=== PATIENT | female | born 1970 | race Caucasian/White ===

== ENCOUNTER 2016-05-11 10:16 | Emergency (ER) | payer SELFPAY ==
[~2016-05-11] VITALS: Ht 167.6 cm; Wt 90.7 kg
[~2016-05-11 10:16] MED LIST: DAPS25TA2 PO; EYE DROPS; LORA1TAB82 PO; TACR5CAP PO; advil prn; tylenol prn
[2016-05-11] MEDS ORDERED: KETOROLAC TROMETHAMINE 15 MG/ML VIAL ONE (12:15)
[2016-05-11 12:16] LABS: KETONES,URINE Negative (NEGATIVE); LEUKOCYTE ESTERASE ,URINE Negative (NEGATIVE)
[2016-05-11] MEDS ORDERED: ONDANSETRON HCL/PF 4 MG/2 ML VIAL ONE (12:16)
[2016-05-11 12:21] LABS: ADD UA MICROSCOPIC YES
[2016-05-11 12:25] LABS: ADD URINE CULTURE NO; RBC,URINE 0-2 /HPF (0-2); WBC,URINE 0-2 /HPF (0-3)
[2016-05-11] MEDS ORDERED: ONDANSETRON HCL/PF 4 MG/2 ML VIAL IVP ONE (12:30)
[2016-05-11] MEDS ORDERED: KETOROLAC TROMETHAMINE INJ 30 MG/ML VIAL IV ONE (12:30)
[2016-05-11 12:53] LABS: BASOPHILS # (AUTO) 0.1 /CMM (0.0-0.2); BASOPHILS % (AUTO) 1.5 % (0.0-2.0); DIFF TOTAL % 100 %; EOSINOPHILS # (AUTO) 0.3 /CMM (0.0-0.7); EOSINOPHILS % (AUTO) 3.3 % (0.0-6.0); HEMATOCRIT 44 % (33-45); HEMOGLOBIN 14.3 g/dL (11.5-14.8); LYMPHOCYTES # (AUTO) 3.2 /CMM (0.8-4.8); MEAN CORPUSCULAR HEMOGLOBIN 30 PG (26.0-33.0); MEAN CORPUSCULAR HGB CONC 33 g/dl (31.0-36.0); MEAN CORPUSCULAR VOLUME 90 fL (82-100); MONOCYTES # (AUTO) 0.4 /CMM (0.1-1.30); MONOCYTES % (AUTO) 4.8 % (2.0-12.0); NEUTROPHILS # (AUTO) 5.2 /CMM (1.8-8.9); NEUTROPHILS % (AUTO) 55.4 % (43.0-81.0); PLATELET COUNT (AUTO) 265 /CMM (150-450); RED BLOOD CELL COUNT(AUTO) 4.81 MIL/uL (4.0-5.2); WHITE BLOOD COUNT (AUTO) 9.2 K/uL (4.3-11.0)
[2016-05-11 13:02] LABS: CALCIUM, SERUM 8.5 mg/dL (8.5-10.1); CREATININE 0.6 mg/dL (0.6-1.3)
[2016-05-11 13:08] LABS: ALBUMIN 3.4 g/dL (3.4-5.0); BILIRUBIN,TOTAL 0.5 mg/dL (0.2-1.0); TOTAL PROTEIN, SERUM 7.2 g/dL (6.4-8.2)
[2016-05-11 13:19] LABS: INDIRECT BILIRUBIN 0.5 mg/dL (0.0-1.1)
[2016-05-11 14:00] LABS: CALCIUM, SERUM 8.7 mg/dL (8.5-10.1); CREATININE 0.7 mg/dL (0.6-1.3); POTASSIUM 4.1 mmol/L (3.5-5.1)
[2016-05-11 15:18] VITALS: BP 129/87
== END 2016-05-11 15:19 | disposition home or self-care (01) ==
LOC: ER 10:21
DX: R10.13 Epigastric pain (principal); F41.9 Anxiety disorder, unspecified
CPT/HCPCS: 36415; 76705; 80048 ×2; 80076; 81001; 83690; 85025; 93005; 96374; 96375; 99285; A4606; J1885; J2405; Z7610; 81000-TC

== ENCOUNTER 2016-07-05 11:53 | Emergency (ER) | payer BC, MEDICAID ==
[~2016-07-05] VITALS: Ht 167.6 cm; Wt 99.8 kg
[2016-07-05 14:24] LABS: BASOPHILS # (AUTO) 0.1 /CMM (0.0-0.2); BASOPHILS % (AUTO) 1.1 % (0.0-2.0); DIFF TOTAL % 100 %; EOSINOPHILS # (AUTO) 0.2 /CMM (0.0-0.7); HEMATOCRIT 46 % (33-45); HEMOGLOBIN 14.9 g/dL (11.5-14.8); LYMPHOCYTES # (AUTO) 2.9 /CMM (0.8-4.8); LYMPHOCYTES % (AUTO) 27.9 % (20.0-44.0); MEAN CORPUSCULAR HEMOGLOBIN 30 PG (26.0-33.0); MEAN CORPUSCULAR HGB CONC 33 g/dl (31.0-36.0); MEAN CORPUSCULAR VOLUME 92 fL (82-100); MONOCYTES # (AUTO) 0.5 /CMM (0.1-1.30); MONOCYTES % (AUTO) 5.1 % (2.0-12.0); NEUTROPHILS # (AUTO) 6.7 /CMM (1.8-8.9); NEUTROPHILS % (AUTO) 63.9 % (43.0-81.0); PLATELET COUNT (AUTO) 278 /CMM (150-450); RED BLOOD CELL COUNT(AUTO) 4.97 MIL/uL (4.0-5.2); WHITE BLOOD COUNT (AUTO) 10.4 K/uL (4.3-11.0)
[2016-07-05 14:28] LABS: CALCIUM, SERUM 9.2 mg/dL (8.5-10.1); CREATININE 0.7 mg/dL (0.6-1.3); POTASSIUM 4.2 mmol/L (3.5-5.1)
[2016-07-05] MEDS ORDERED: IOHEXOL-350 100 ML VIAL IV ONE (16:22)
[2016-07-05] MEDS ORDERED: IV NS 0.9% 250 ML IV ONE (16:22)
[2016-07-05 17:55] VITALS: BP 129/88
== END 2016-07-05 18:05 | disposition home or self-care (01) ==
LOC: ER 11:56
DX: J18.9 Pneumonia, unspecified organism (principal); F41.9 Anxiety disorder, unspecified
CPT/HCPCS: 36415; 71010; 71275; 80048; 85025; 85378; 93970; 99285; A4606; J7050; Q9967; Z7610

== ENCOUNTER 2017-07-04 11:23 | Emergency (ER) | payer BC, MEDICAID ==
[~2017-07-04] VITALS: Ht 165.1 cm; Wt 99.8 kg
[~2017-07-04 11:23] MED LIST changes: +LORA-259 PO; -LORA1TAB82 PO
[2017-07-04 11:31] VITALS: BP 139/89
== END 2017-07-04 13:14 | disposition home or self-care (01) ==
LOC: ER 11:24
DX: M47.22 Other spondylosis with radiculopathy, cervical region (principal); M53.82 Other specified dorsopathies, cervical region; J45.909 Unspecified asthma, uncomplicated
CPT/HCPCS: 72125; 99284; A4606; Z7610

== ENCOUNTER 2017-10-21 15:53 | Emergency (ER) | payer MEDICAID ==
[~2017-10-21] VITALS: Ht 165.1 cm; Wt 90.7 kg
--- NOTE | 2017-10-21 16:00 | NUR ---
PT AMBULATED TO THE BATHROOM WITH A SLOW STEADY GAIT. URINE SAMPLE OBTAINED.
--- NOTE | 2017-10-21 16:00 | NUR ---
PT BIB RA WITH A C/O FLU LIKE SYMPTOMS. PT IS C/O HEADACHE, GENERALIZED BODY ACHE, N/V AND FEVER DIRECTOR OF OPERATIONS HOME HEALTH. PT WAS PLACED ON THE MONITOR AND CONTINUOUS PULSE OX. PT IS TACHY WITH ORAL TEMP OF 101.0F. PT'S FAMILY MEMBERS ARE AT THE BEDSIDE. RESP EVEN AND UNLABORED. BREATH SOUNDS BILATERALLY.
[2017-10-21 16:19] LABS: BASOPHILS # (AUTO) 0.1 /CMM (0.0-0.2); BASOPHILS % (AUTO) 1.1 % (0.0-2.0); EOSINOPHILS % (AUTO) 0.2 % (0.0-6.0); HEMATOCRIT 47 % (33-45); HEMOGLOBIN 15.6 g/dL (11.5-14.8); LYMPHOCYTES % (AUTO) 7.7 % (20.0-44.0); MEAN CORPUSCULAR HEMOGLOBIN 30 PG (26.0-33.0); MEAN CORPUSCULAR HGB CONC 34 g/dl (31.0-36.0); MEAN CORPUSCULAR VOLUME 90 fL (82-100); MONOCYTES # (AUTO) 0.3 /CMM (0.1-1.30); MONOCYTES % (AUTO) 2.7 % (2.0-12.0); NEUTROPHILS # (AUTO) 11.4 /CMM (1.8-8.9); NEUTROPHILS % (AUTO) 88.3 % (43.0-81.0); PLATELET COUNT (AUTO) 273 /CMM (150-450); RDW COEFFICIENT OF VARIATION 13.1 (11.5-15.0); RED BLOOD CELL COUNT(AUTO) 5.18 MIL/uL (4.0-5.2); WHITE BLOOD COUNT (AUTO) 12.8 K/uL (4.3-11.0)
[2017-10-21] MEDS ORDERED: ONDANSETRON HCL/PF 4 MG/2 ML VIAL ONE (16:19)
[2017-10-21] MEDS ORDERED: ACETAMINOPHEN ES 500 MG TABLET ONE (16:19)
[2017-10-21 16:24] LABS: APPEARANCE,URINE Slightly Cloudy (CLEAR); BILIRUBIN,URINE Negative (NEGATIVE); BLOOD, URINE Moderate Ery/uL (NEGATIVE); COLOR,URINE Yellow (YELLOW); KETONES,URINE Trace (NEGATIVE); LEUKOCYTE ESTERASE ,URINE Trace (NEGATIVE); NITRITE, URINE Negative (NEGATIVE); PH,URINE 5.5 (5.0-8.0); PROTEIN,URINE Negative (NEGATIVE); UGLUCOSE Negative (NEGATIVE); UROBILINOGEN,URINE 0.2 EU/dL (0.2)
[2017-10-21 16:29] LABS: CALCIUM, SERUM 9.4 mg/dL (8.5-10.1); CARBON DIOXIDE 24 mmol/L (21-32); CHLORIDE 101 mmol/L (98-107); CREATININE 0.9 mg/dL (0.6-1.3); GLUCOSE 91 mg/dL (74-106); SODIUM SERUM 135 mmol/L (136-145); UREA NITROGEN, BLOOD 10 mg/dL (7-18)
[2017-10-21] MEDS ORDERED: ONDANSETRON HCL/PF 4 MG/2 ML VIAL IVP ONE (16:30)
[2017-10-21] MEDS ORDERED: IV NS 0.9% 1,000 ML BAG IV ONE ×2 (16:30→17:00)
[2017-10-21] MEDS ORDERED: ACETAMINOPHEN ES 500 MG TABLET PO ONE (16:30)
[2017-10-21 16:35] LABS: ALANINE AMINOTRANSFERASE 28 U/L (12-78); ALKALINE PHOSPHATASE 65 U/L (46-116); ASPARTATE AMINOTRANSFERASE 17 U/L (15-37); BILIRUBIN,DIRECT 0.1 mg/dL (0.0-0.2); BILIRUBIN,TOTAL 0.7 mg/dL (0.2-1.0); LIPASE 70 U/L (73-393)
[2017-10-21 16:37] LABS: TROPONIN I < 0.017 ng/mL (0.00-0.056)
[2017-10-21 16:57] LABS: BACTERIA,URINE Few /HPF (None Seen); SQUAMOUS EPITHELIAL CELL,UR Few /HPF (None Seen)
[2017-10-21] MEDS ORDERED: KETOROLAC TROMETHAMINE INJ 30 MG/ML VIAL IV ONE (17:00)
[2017-10-21] MEDS ORDERED: METOCLOPRAMIDE HCL 10 MG/2 ML VIAL IV ONE (17:00)
[2017-10-21] MEDS ORDERED: LORAZEPAM INJ 2 MG/ML VIAL IV ONE (17:00)
[2017-10-21] MEDS ORDERED: KETOROLAC TROMETHAMINE INJ 30 MG/ML VIAL ONE (17:18)
[2017-10-21] MEDS ORDERED: METOCLOPRAMIDE HCL 10 MG/2 ML VIAL ONE (17:18)
[2017-10-21] MEDS ORDERED: LORAZEPAM INJ 2 MG/ML VIAL ONE (17:19)
[2017-10-21] MEDS ORDERED: CEFTRIAXONE 1 G in IV D5W 50 ML IV ONE (17:30)
--- NOTE | 2017-10-21 17:34 | NUR ---
PT IS C/O HEADACHE AND GENERALIZED BODY ACHES. PT REC'D MEDICATION ORDERED.
--- NOTE | 2017-10-21 17:40 | NUR ---
PT APPEARS TO BE SLEEPING SOUNDLY. VSS.
--- NOTE | 2017-10-21 17:53 | NUR ---
Note bhakti in EDM - 10/21/17 at 1818 by SCOUT TRIED TO WEAN PT OFF O2. PT DESATURATED TO 89% ON RA. PT PLACED BACK ON 2L O2 VIA NC. DR. SCHWARZ NOTIFIED.
--- NOTE | 2017-10-21 17:59 | NUR ---
PT IS SLEEPING SOUNDLY. NS STILL INFUSING INTO LT HAND VIA 20G.
--- NOTE | 2017-10-21 18:21 | NUR ---
PT'S IS STILL TACHY AT 120.
--- NOTE | 2017-10-21 18:32 | NUR ---
PT FAMILY IS AT THE BEDSIDE
[2017-10-21 19:11] VITALS: BP 130/98
== END 2017-10-21 19:12 | disposition home or self-care (01) ==
LOC: ER 15:54
DX: N30.00 Acute cystitis without hematuria (principal); R53.1 Weakness; M79.1 Myalgia; F41.9 Anxiety disorder, unspecified; J45.909 Unspecified asthma, uncomplicated
CPT/HCPCS: 36415; 71045; 80048; 80076; 81001; 83690; 84484; 85025; 93005; 96361; 96365; 96375; 99285; A4606; J0696; J1885; J2060; J2405; J2765; J7030 ×2; J7060; Z7610; 81000-TC

== ENCOUNTER 2018-01-25 11:17 | Emergency (ER) | payer MEDICAID ==
[~2018-01-25] VITALS: Ht 167.6 cm; Wt 108.9 kg
--- NOTE | 2018-01-25 11:39 | NUR ---
PATIENT TO ED DT VAGINAL BLEEDING X 17-18 DAYS. PER PATIENT SHE USED 2 PADS WITHIN THE DAY. PATIENT IS AWAKE AND ALERT. NOT IN DISTRSS. REPORTED OCCASIONAL DIZZINESS. PATIENT NOT IN DISTRESS. SKIN IS WARM TO TOUCH AND NON DIAPHORETIC. PATIENT IS AFEBRILE.VSS
--- NOTE | 2018-01-25 11:40 | NUR ---
OMARI AT BEDSIDE FOR EVAL
[2018-01-25 12:15] LABS: BASOPHILS # (AUTO) 0.1 /CMM (0.0-0.2); EOSINOPHILS % (AUTO) 1.5 % (0.0-6.0); HEMATOCRIT 46 % (33-45); HEMOGLOBIN 15.1 g/dL (11.5-14.8); LYMPHOCYTES # (AUTO) 2.3 /CMM (0.8-4.8); LYMPHOCYTES % (AUTO) 32.7 % (20.0-44.0); MEAN CORPUSCULAR HGB CONC 33 g/dl (31.0-36.0); MEAN CORPUSCULAR VOLUME 90 fL (82-100); MONOCYTES # (AUTO) 0.3 /CMM (0.1-1.30); NEUTROPHILS # (AUTO) 4.2 /CMM (1.8-8.9); NEUTROPHILS % (AUTO) 59.8 % (43.0-81.0); PLATELET COUNT (AUTO) 283 /CMM (150-450); RDW COEFFICIENT OF VARIATION 13.1 (11.5-15.0); RED BLOOD CELL COUNT(AUTO) 5.09 MIL/uL (4.0-5.2)
[2018-01-25 12:17] LABS: APPEARANCE,URINE Clear (CLEAR); BILIRUBIN,URINE SMALL (NEGATIVE); BLOOD, URINE Large Ery/uL (NEGATIVE); COLOR,URINE Dark (YELLOW); KETONES,URINE 15 (NEGATIVE); LEUKOCYTE ESTERASE ,URINE Negative (NEGATIVE); NITRITE, URINE Negative (NEGATIVE); PH,URINE 5.5 (5.0-8.0); PROTEIN,URINE 100 mg/dl (NEGATIVE); UGLUCOSE Negative (NEGATIVE); UROBILINOGEN,URINE 0.2 EU/dL (0.2)
[2018-01-25 12:22] LABS: CALCIUM, SERUM 8.8 mg/dL (8.5-10.1); CREATININE 0.7 mg/dL (0.6-1.3); POTASSIUM 3.9 mmol/L (3.5-5.1)
[2018-01-25 12:30] LABS: INR 0.96 (0.87-1.13)
[2018-01-25 12:53] LABS: BACTERIA,URINE 1+ /HPF (None Seen); RBC,URINE TOO NUMEROUS TO COUN /HPF (0-2); SQUAMOUS EPITHELIAL CELL,UR Few /HPF (None Seen); WBC,URINE 0-2 /HPF (0-3)
[2018-01-25 13:15] VITALS: BP 130/80
--- NOTE | 2018-01-25 13:15 | NUR ---
Patient discharged to home in stable condition. Written and verbal after care instructions given. Patient verbalizes understanding of instruction.
== END 2018-01-25 13:16 | disposition home or self-care (01) ==
LOC: ER 11:21
DX: N92.1 Excessive and frequent menstruation with irregular cycle (principal); R42 Dizziness and giddiness; J45.909 Unspecified asthma, uncomplicated; E78.00 Pure hypercholesterolemia, unspecified; F17.200 Nicotine dependence, unspecified, uncomplicated; F41.9 Anxiety disorder, unspecified; Z98.890 Other specified postprocedural states
CPT/HCPCS: 36415; 80048; 81001; 84703; 85025; 85610; 99284; 99406; A4606; Z7610; 81000-TC

== ENCOUNTER 2018-11-09 23:38 | Emergency (ER) | payer MEDICAID ==
[~2018-11-09] VITALS: Ht 165.1 cm; Wt 104.3 kg
--- NOTE | 2018-11-09 23:55 | NUR ---
BIBSELF WITH FAMILY. TO ER BED 11. AAOX4. BREATHING EVEN AND UNLABORED. AMBULATORY. C/O PUBIC PAIN AND LLQ PAIN SINCE 1.5 HOURS AGO. PT REPORTS PAIN CRAMPING SHARP INTERMITENT PAIN 02/01. PT NOTED SQUIRMING AROUND AND CANT STAY IN 1 POSITION. PT REPORTS TAKING TYLENOL 650MG SILK SCREEN CUTTER. PT ALSO REPORTS GIVING HERSELF AN ENEMA YESTERDAY. MD AT BEDSIDE. ORDERS RECEIVED. NOTED AND CARRIED OUT
[2018-11-10] MEDS ORDERED: IV NS 0.9% 1,000 ML BAG IV ONE
[2018-11-10] MEDS ORDERED: MORPHINE SULFATE INJ 2 MG/ML DISP.SYRIN IV ONE
[2018-11-10] MEDS ORDERED: ONDANSETRON HCL/PF 4 MG/2 ML VIAL IVP ONE
[2018-11-10] MEDS ORDERED: MORPHINE SULFATE INJ 4 MG/ML DISP.SYRIN ONE (00:03)
[2018-11-10] MEDS ORDERED: ONDANSETRON HCL/PF 4 MG/2 ML VIAL ONE (00:03)
--- NOTE | 2018-11-10 00:07 | NUR ---
IV LINE OBATINED ON L HAND 20G. BLOOD DRAWN AND GIVEN TO TELEPHONE PLANT POWER OPERATOR AT BEDSIDE.
[2018-11-10 00:08] LABS: BASOPHILS # (AUTO) 0.1 /CMM (0.0-0.2); BASOPHILS % (AUTO) 0.7 % (0.0-2.0); EOSINOPHILS % (AUTO) 4.3 % (0.0-6.0); HEMATOCRIT 42 % (33-45); HEMOGLOBIN 14.3 g/dL (11.5-14.8); LYMPHOCYTES # (AUTO) 3.8 /CMM (0.8-4.8); LYMPHOCYTES % (AUTO) 37.3 % (20.0-44.0); MEAN CORPUSCULAR HGB CONC 34 g/dl (31.0-36.0); MEAN CORPUSCULAR VOLUME 91 fL (82-100); MONOCYTES # (AUTO) 0.6 /CMM (0.1-1.30); MONOCYTES % (AUTO) 5.9 % (2.0-12.0); NEUTROPHILS # (AUTO) 5.3 /CMM (1.8-8.9); NEUTROPHILS % (AUTO) 51.8 % (43.0-81.0); PLATELET COUNT (AUTO) 293 /CMM (150-450); RED BLOOD CELL COUNT(AUTO) 4.57 MIL/uL (4.0-5.2); WHITE BLOOD COUNT (AUTO) 10.2 K/uL (4.3-11.0)
[2018-11-10 00:09] LABS: APPEARANCE,URINE Clear (CLEAR); BILIRUBIN,URINE Negative (NEGATIVE); BLOOD, URINE Small Ery/uL (NEGATIVE); COLOR,URINE Yellow (YELLOW); KETONES,URINE Negative (NEGATIVE); LEUKOCYTE ESTERASE ,URINE Negative (NEGATIVE); NITRITE, URINE Negative (NEGATIVE); PH,URINE 7.5 (5.0-8.0); PROTEIN,URINE Negative (NEGATIVE); UGLUCOSE Negative (NEGATIVE); UROBILINOGEN,URINE 0.2 EU/dL (0.2)
--- NOTE | 2018-11-10 00:17 | NUR ---
PT TO CT ON [facility]
[2018-11-10 00:24] LABS: CALCIUM, SERUM 8.9 mg/dL (8.5-10.1); POTASSIUM 4.7 mmol/L (3.5-5.1)
[2018-11-10 00:31] LABS: ALBUMIN 3.5 g/dL (3.4-5.0); BILIRUBIN,TOTAL 0.2 mg/dL (0.2-1.0); TOTAL PROTEIN, SERUM 7.1 g/dL (6.4-8.2)
--- NOTE | 2018-11-10 00:34 | NUR ---
US AT BEDSIDE
[2018-11-10 00:46] LABS: BACTERIA,URINE Few /HPF (None Seen); SQUAMOUS EPITHELIAL CELL,UR Few /HPF (None Seen); WBC,URINE 0-2 /HPF (0-3)
[2018-11-10 01:24] VITALS: BP 101/60
== END 2018-11-10 01:51 | disposition home or self-care (01) ==
LOC: ER 23:42
DX: D25.9 Leiomyoma of uterus, unspecified (principal); J45.909 Unspecified asthma, uncomplicated; Z98.890 Other specified postprocedural states; Z79.899 Other long term (current) drug therapy
CPT/HCPCS: 36415; 74176; 76856; 80048; 80076; 81001; 83690; 84703; 85025; 85730; 96374; 96375; 99284; J2270; J2405; J7030; 81000-TC

== ENCOUNTER 2019-02-05 14:19 | Emergency (ER) | payer MEDICAID ==
[~2019-02-05] VITALS: Ht 167.6 cm; Wt 108.9 kg
--- NOTE | 2019-02-05 14:26 | NUR ---
PT BIBRA FROM HOME C/O FEVER FOR 3 DAYS AND HEADACHE. PT IS AAOX4, NOT IN RESPIRAOTRY DISTRESS, HOOKED TO MONITOR, KEPT RESTED AND COMFORTABLE, WILL CONTINUE TO MONITOR.
--- NOTE | 2019-02-05 14:34 | NUR ---
AT BEDSIDE FOR EVAL.
[2019-02-05] MEDS ORDERED: diphenhydrAMINE HCL 50 MG/ML VIAL ONE (14:43)
[2019-02-05] MEDS ORDERED: ONDANSETRON HCL/PF 4 MG/2 ML VIAL ONE (14:43)
[2019-02-05] MEDS ORDERED: IV NS 0.9% 1,000 ML BAG IV ONE (15:00)
[2019-02-05] MEDS ORDERED: diphenhydrAMINE HCL 50 MG/ML VIAL IV ONE (15:00)
[2019-02-05] MEDS ORDERED: ONDANSETRON HCL/PF 4 MG/2 ML VIAL IVP ONE (15:00)
--- NOTE | 2019-02-05 15:00 | NUR ---
IV LINE ESTABLISHED, BLOOD DRAWN AND SENT TO LAB.
--- NOTE | 2019-02-05 15:05 | NUR ---
URINE SPECIMEN COLLECTED AND SENT TO LAB.
[2019-02-05 15:06] LABS: BASOPHILS % (AUTO) 0.4 % (0.0-2.0); EOSINOPHILS % (AUTO) 3.2 % (0.0-6.0); HEMATOCRIT 45 % (33-45); HEMOGLOBIN 15.1 g/dL (11.5-14.8); LYMPHOCYTES # (AUTO) 2.7 /CMM (0.8-4.8); LYMPHOCYTES % (AUTO) 27.9 % (20.0-44.0); MEAN CORPUSCULAR HGB CONC 34 g/dl (31.0-36.0); MEAN CORPUSCULAR VOLUME 93 fL (82-100); MONOCYTES # (AUTO) 0.5 /CMM (0.1-1.30); MONOCYTES % (AUTO) 4.9 % (2.0-12.0); NEUTROPHILS # (AUTO) 6.3 /CMM (1.8-8.9); NEUTROPHILS % (AUTO) 63.6 % (43.0-81.0); PLATELET COUNT (AUTO) 300 /CMM (150-450); RED BLOOD CELL COUNT(AUTO) 4.82 MIL/uL (4.0-5.2); WHITE BLOOD COUNT (AUTO) 9.8 K/uL (4.3-11.0)
[2019-02-05 15:13] LABS: BILIRUBIN,URINE Negative (NEGATIVE); BLOOD, URINE Moderate Ery/uL (NEGATIVE); COLOR,URINE Yellow (YELLOW); KETONES,URINE Negative (NEGATIVE); LEUKOCYTE ESTERASE ,URINE Negative (NEGATIVE); NITRITE, URINE Negative (NEGATIVE); PROTEIN,URINE Negative (NEGATIVE); UGLUCOSE Negative (NEGATIVE); UROBILINOGEN,URINE 0.2 EU/dL (0.2)
[2019-02-05 15:15] LABS: APPEARANCE,URINE Hazy (CLEAR)
[2019-02-05 15:15] LABS: CALCIUM, SERUM 8.9 mg/dL (8.5-10.1); CARBON DIOXIDE 28 mmol/L (21-32); CHLORIDE 103 mmol/L (98-107); CREATININE 0.8 mg/dL (0.6-1.3); GLUCOSE 105 mg/dL (74-106); POTASSIUM 3.9 mmol/L (3.5-5.1); SODIUM SERUM 137 mmol/L (136-145); UREA NITROGEN, BLOOD 14 mg/dL (7-18)
[2019-02-05 15:18] LABS: BACTERIA,URINE Rare /HPF (None Seen); SQUAMOUS EPITHELIAL CELL,UR Few /HPF (None Seen); WBC,URINE 0-3 /HPF (0-3)
--- NOTE | 2019-02-05 15:20 | NUR ---
PT IS WHEELED TO CT SCAN VIA [facility]
[2019-02-05 15:21] LABS: ALANINE AMINOTRANSFERASE 18 U/L (12-78); ALBUMIN 3.4 g/dL (3.4-5.0); ALKALINE PHOSPHATASE 69 U/L (46-116); ASPARTATE AMINOTRANSFERASE 14 U/L (15-37); BILIRUBIN,TOTAL 0.2 mg/dL (0.2-1.0); TOTAL PROTEIN, SERUM 7.1 g/dL (6.4-8.2)
--- NOTE | 2019-02-05 17:31 | NUR ---
IV removed. Catheter intact and site benign. Pressure and 4x4 applied to site. No bleeding noted. Patient discharged to home in stable condition. Written and verbal after care instructions given. Patient verbalizes understanding of instruction.
[2019-02-05 17:32] VITALS: BP 129/71
== END 2019-02-05 17:32 | disposition home or self-care (01) ==
LOC: ER 14:21
DX: R42 Dizziness and giddiness (principal); B34.9 Viral infection, unspecified; J45.909 Unspecified asthma, uncomplicated; Z98.890 Other specified postprocedural states; Z79.899 Other long term (current) drug therapy
CPT/HCPCS: 36415; 70450; 71045; 80048; 80076; 81001; 83605; 84484; 85025; 85730; 87040 ×2; 87804 ×2; 93005; 96361; 96374; 96375; 99284; J1200; J2405; J7030 ×2; 81000-TC

== ENCOUNTER 2019-10-12 10:05 | Emergency (ER) | payer MEDICAID ==
[~2019-10-12] VITALS: Ht 170.2 cm; Wt 88.5 kg
[~2019-10-12 10:05] MED LIST changes: -TACR5CAP PO; +TACR5CAP2 PO
[2019-10-12] MEDS ORDERED: HYDROCODONE/APAP 5/325MG TABLET PO ONE (10:30)
[2019-10-12] MEDS ORDERED: HYDROCODONE/APAP 5/325MG TABLET ONE (10:43)
[2019-10-12 10:44] LABS: BASOPHILS # (AUTO) 0.1 /CMM (0.0-0.2); BASOPHILS % (AUTO) 0.8 % (0.0-2.0); EOSINOPHILS % (AUTO) 1.3 % (0.0-6.0); HEMATOCRIT 50 % (33-45); HEMOGLOBIN 16.4 g/dL (11.5-14.8); LYMPHOCYTES # (AUTO) 2.1 /CMM (0.8-4.8); MEAN CORPUSCULAR HGB CONC 33 g/dl (31.0-36.0); MEAN CORPUSCULAR VOLUME 94 fL (82-100); MONOCYTES # (AUTO) 0.5 /CMM (0.1-1.30); MONOCYTES % (AUTO) 5.3 % (2.0-12.0); NEUTROPHILS # (AUTO) 6.4 /CMM (1.8-8.9); NEUTROPHILS % (AUTO) 69.6 % (43.0-81.0); PLATELET COUNT (AUTO) 290 /CMM (150-450); RED BLOOD CELL COUNT(AUTO) 5.32 MIL/uL (4.0-5.2); WHITE BLOOD COUNT (AUTO) 9.1 K/uL (4.3-11.0)
[2019-10-12 10:46] LABS: CALCIUM, SERUM 9.5 mg/dL (8.5-10.1); POTASSIUM 4.1 mmol/L (3.5-5.1)
--- NOTE | 2019-10-12 11:00 | NUR ---
Pt states "Pain better", No obvious distress-ambulatory BRP. US at Bedside
[2019-10-12 11:25] LABS: BILIRUBIN,URINE Negative (NEGATIVE); BLOOD, URINE Moderate Ery/uL (NEGATIVE); COLOR,URINE Yellow (YELLOW); KETONES,URINE Negative (NEGATIVE); LEUKOCYTE ESTERASE ,URINE Negative (NEGATIVE); NITRITE, URINE Negative (NEGATIVE); PROTEIN,URINE Negative (NEGATIVE); UGLUCOSE Negative (NEGATIVE); UROBILINOGEN,URINE 0.2 EU/dL (0.2)
[2019-10-12 11:26] LABS: APPEARANCE,URINE SLIGHTLY HAZY (CLEAR)
[2019-10-12 11:30] LABS: BACTERIA,URINE Few /HPF (None Seen); SQUAMOUS EPITHELIAL CELL,UR Many /HPF (None Seen)
[2019-10-12 11:35] VITALS: BP 127/80
--- NOTE | 2019-10-12 11:38 | NUR ---
Patient discharged to home in stable condition. Written and verbal after care instructions given. Patient verbalizes understanding of instruction.
== END 2019-10-12 11:39 | disposition home or self-care (01) ==
LOC: ER 10:13
DX: D25.9 Leiomyoma of uterus, unspecified (principal); N92.1 Excessive and frequent menstruation with irregular cycle; J45.909 Unspecified asthma, uncomplicated; Z98.890 Other specified postprocedural states; Z79.899 Other long term (current) drug therapy
CPT/HCPCS: 36415; 76856-TC; 80048-TC; 81000-TC; 85025-TC

== ENCOUNTER 2019-12-09 11:58 | Emergency (ER) | payer MEDICAID ==
[~2019-12-09] VITALS: Ht 167.6 cm; Wt 100.2 kg
[2019-12-09 12:08] VITALS: BP 136/94
--- NOTE | 2019-12-09 12:10 | NUR ---
"MyBP has been high the last couple days. I take metoprolol ONLY when high took 2 tabs today. Have vertigo-dizzy" Attached to the conveyor monitor.
--- NOTE | 2019-12-09 12:25 | NUR ---
Patient called this expert medical writer to the bedside inquiring "how long MD is coming- its too long" When I informed her "MD is attending to a pt right now will be here in 10-15 min" Pt states "thats too long- I do NOT want to wait."Got up the guerney and walked out
[2019-12-09] MEDS ORDERED: ONDANSETRON HCL/PF 4 MG/2 ML VIAL IVP ONE (12:30)
[2019-12-09] MEDS ORDERED: IV NS 0.9% 500 ML BAG IV ONE (12:30)
== END 2019-12-09 12:32 | disposition left against medical advice (07) ==
LOC: ER 12:04
DX: R42 Dizziness and giddiness (principal); Z53.21 Procedure and treatment not carried out due to patient leaving prior to being seen by health care provider

== ENCOUNTER 2020-09-27 14:41 | Emergency (ER) | payer BC, MEDICAID ==
[~2020-09-27] VITALS: Ht 167.6 cm; Wt 95.3 kg
--- NOTE | 2020-09-27 14:41 | NUR ---
PT BIB C/O ABDOMINAL PAIN AND NAUSEA/VOMITING STARTED YESTERDAY. PT IS AAOX4, NOT IN RESPIRATORY DISTRESSM V/S STABLE, KEPT RESTED AND COMFORTABLE. WILL CONTINUE TO MONITOR.
--- NOTE | 2020-09-27 15:05 | NUR ---
SEEN AND EXAMINED BY .
--- NOTE | 2020-09-27 15:08 | NUR ---
URINE SPECIMEN COLLECTED AND SENT TO LAB.
[2020-09-27] MEDS ORDERED: ONDANSETRON HCL/PF 4 MG/2 ML VIAL ONE (15:12)
[2020-09-27] MEDS ORDERED: MORPHINE SULFATE INJ 4 MG/ML DISP.SYRIN ONE (15:12)
--- NOTE | 2020-09-27 15:15 | NUR ---
HOSPICE LIAISON AT BEDSIDE FOR XRAY.
[2020-09-27 15:18] LABS: BILIRUBIN,URINE Negative (NEGATIVE); COLOR,URINE YELLOW (YELLOW); LEUKOCYTE ESTERASE ,URINE Negative (NEGATIVE); NITRITE, URINE Negative (NEGATIVE); PH,URINE 5.5 (5.0-8.0); PROTEIN,URINE Negative (NEGATIVE); UGLUCOSE Negative (NEGATIVE); UROBILINOGEN,URINE 0.2 EU/dL (0.2)
[2020-09-27 15:21] LABS: BACTERIA,URINE Rare /HPF (None Seen); SQUAMOUS EPITHELIAL CELL,UR Few /HPF (None Seen); WBC,URINE NONE SEEN /HPF (0-3)
--- NOTE | 2020-09-27 15:25 | NUR ---
IV LINE ESTABLISHED BLOOD DRAWN AND SENT TO LAB.
[2020-09-27 15:28] LABS: BASOPHILS % (AUTO) 0.4 % (0.0-2.0); EOSINOPHILS % (AUTO) 2.8 % (0.0-6.0); HEMATOCRIT 44 % (33-45); HEMOGLOBIN 14.6 g/dL (11.5-14.8); LYMPHOCYTES # (AUTO) 2.9 /CMM (0.8-4.8); LYMPHOCYTES % (AUTO) 30.5 % (20.0-44.0); MEAN CORPUSCULAR HGB CONC 33 g/dl (31.0-36.0); MEAN CORPUSCULAR VOLUME 92 fL (82-100); MONOCYTES # (AUTO) 0.6 /CMM (0.1-1.30); MONOCYTES % (AUTO) 5.9 % (2.0-12.0); NEUTROPHILS # (AUTO) 5.7 /CMM (1.8-8.9); NEUTROPHILS % (AUTO) 60.4 % (43.0-81.0); PLATELET COUNT (AUTO) 288 /CMM (150-450); RED BLOOD CELL COUNT(AUTO) 4.76 MIL/uL (4.0-5.2); WHITE BLOOD COUNT (AUTO) 9.5 K/uL (4.3-11.0)
[2020-09-27] MEDS ORDERED: IV NS 0.9% 1,000 ML BAG IV ONE (15:30)
[2020-09-27] MEDS ORDERED: ONDANSETRON HCL/PF 4 MG/2 ML VIAL IVP ONE (15:30)
[2020-09-27] MEDS ORDERED: MORPHINE SULFATE INJ 2 MG/ML DISP.SYRIN IV ONE (15:30)
--- NOTE | 2020-09-27 15:33 | NUR ---
MORPHINE 4 MG GIVEN. WELL TOLERATED BY THE PT. NO ADVERSE REACTION NOTED. V/S STABLE.
[2020-09-27 15:48] LABS: CREATININE 0.7 mg/dL (0.6-1.3); POTASSIUM 4.4 mmol/L (3.5-5.1)
[2020-09-27 15:54] LABS: ALBUMIN 3.5 g/dL (3.4-5.0); BILIRUBIN,DIRECT 0.1 mg/dL (0.0-0.2); BILIRUBIN,TOTAL 0.2 mg/dL (0.2-1.0)
--- NOTE | 2020-09-27 16:43 | NUR ---
DR. HUSAIN SPEAKING WITH DR. CHAVEZ.
[2020-09-27] MEDS ORDERED: HYDR-3972 PO (16:49)
[2020-09-27] MEDS ORDERED: IBUP-1957 PO (16:49)
[2020-09-27 17:08] VITALS: BP 125/73
== END 2020-09-27 17:09 | disposition home or self-care (01) ==
LOC: ER 14:47
DX: K43.9 Ventral hernia without obstruction or gangrene (principal); R11.2 Nausea with vomiting, unspecified; J45.909 Unspecified asthma, uncomplicated; Z98.890 Other specified postprocedural states; Z79.899 Other long term (current) drug therapy
CPT/HCPCS: 36415; 71045; 74176; 80048; 80076; 81001; 83690; 85025; 96361; 96374; 96375; 99285; J2270; J2405; J7030

== ENCOUNTER → 2020-10-06 | Outpatient (CLI) | payer BC ==
[~2020-10-06] MED LIST changes: +HYDR-3972 PO; +IBUP-1957 PO
== END | disposition home or self-care (01) ==
LOC: RAD 09:46
DX: R76.11 Nonspecific reaction to tuberculin skin test without active tuberculosis (principal)
CPT/HCPCS: 71045-TC

== ENCOUNTER 2021-03-25 09:51 | Inpatient (IN) | payer BC ==
[~2021-03-25] VITALS: Ht 165.1 cm; Wt 96.6 kg
--- NOTE | 2021-03-25 10:00 | NUR ---
THE PATIENT BIB [facility] FOR C/O ABDOMINAL PAIN 12/02 X 1 WEEK. ABDOMEN SOFT AND NON-DISTENDED. WILL CONTINUE TO MONITOR THE PATIENT.
[2021-03-25] MEDS ORDERED: ONDANSETRON HCL/PF 4 MG/2 ML VIAL IVP ONE (10:30)
[2021-03-25] MEDS ORDERED: IV NS 0.9% 1,000 ML BAG IV ONE (10:30)
--- NOTE | 2021-03-25 10:38 | NUR ---
IV LINE IS ESTABLISHED, BLOOD SPECIMEN COLLECTED AND SENT TO THE LAB
[2021-03-25 10:40] LABS: BASOPHILS # (AUTO) 0.1 K/uL (0.0-0.2); BASOPHILS % (AUTO) 0.9 % (0.0-2.0); EOSINOPHILS % (AUTO) 1.2 % (0.0-6.0); HEMATOCRIT 42 % (33-45); HEMOGLOBIN 13.8 g/dL (11.5-14.8); LYMPHOCYTES # (AUTO) 2.5 K/uL (0.8-4.8); MEAN CORPUSCULAR HGB CONC 33 g/dl (31.0-36.0); MEAN CORPUSCULAR VOLUME 93 fL (82-100); MONOCYTES # (AUTO) 0.8 K/uL (0.1-1.30); NEUTROPHILS # (AUTO) 10.2 K/uL (1.8-8.9); NEUTROPHILS % (AUTO) 73.9 % (43.0-81.0); PLATELET COUNT (AUTO) 321 K/uL (150-450); RED BLOOD CELL COUNT(AUTO) 4.48 MIL/uL (4.0-5.2); WHITE BLOOD COUNT (AUTO) 13.8 K/uL (4.3-11.0)
--- NOTE | 2021-03-25 10:43 | NUR ---
URINE COLLECTED AND SENT TO THE LAB
[2021-03-25] MEDS ORDERED: ONDANSETRON HCL/PF 4 MG/2 ML VIAL ONE (10:45)
[2021-03-25 10:51] LABS: CALCIUM, SERUM 8.7 mg/dL (8.5-10.1); CARBON DIOXIDE 27 mmol/L (21-32); CHLORIDE 100 mmol/L (98-107); CREATININE 0.8 mg/dL (0.6-1.3); GLUCOSE 94 mg/dL (74-106); POTASSIUM 4.3 mmol/L (3.5-5.1); SODIUM SERUM 136 mmol/L (136-145); UREA NITROGEN, BLOOD 12 mg/dL (7-18)
[2021-03-25 10:56] LABS: ALANINE AMINOTRANSFERASE 15 U/L (12-78); ALBUMIN 3.1 g/dL (3.4-5.0); ALKALINE PHOSPHATASE 78 U/L (46-116); ASPARTATE AMINOTRANSFERASE 20 U/L (15-37); BILIRUBIN,DIRECT 0.1 mg/dL (0.0-0.2); BILIRUBIN,TOTAL 0.5 mg/dL (0.2-1.0); LIPASE 28 U/L (73-393); TOTAL PROTEIN, SERUM 7.4 g/dL (6.4-8.2)
--- NOTE | 2021-03-25 11:28 | NUR ---
PT RETURNED TO ER BED [address]
[2021-03-25] MEDS ORDERED: FENTANYL PF 100MCG/2ML AMPUL ONE ×2 (11:29→12:33)
[2021-03-25] MEDS ORDERED: FENTANYL PF 100MCG/2ML AMPUL IV ONE ×2 (11:30→12:30)
[2021-03-25 12:21] LABS: BILIRUBIN,URINE SMALL (NEGATIVE); COLOR,URINE DARK YELLOW (YELLOW); LEUKOCYTE ESTERASE ,URINE Negative (NEGATIVE); NITRITE, URINE Negative (NEGATIVE); PH,URINE 6.5 (5.0-8.0); PROTEIN,URINE Trace mg/dl (NEGATIVE); UGLUCOSE Negative (NEGATIVE)
[2021-03-25] MEDS ORDERED: PIPERACILLIN /TAZOBACTAM 3.375 G in IV D5W 50 ML IV ONE (12:30)
--- NOTE | 2021-03-25 12:39 | NUR ---
MOVE SHEET SUBMITTED.
[2021-03-25 12:43] LABS: BACTERIA,URINE Few /HPF (None Seen); WBC,URINE 0-3 /HPF (0-3)
[2021-03-25 12:44] LABS: SQUAMOUS EPITHELIAL CELL,UR Moderate /HPF (None Seen); YEAST,URINE Few /HPF (None Seen)
[2021-03-25] MEDS ORDERED: MULT-447 PO (12:44)
[2021-03-25] MEDS ORDERED: HYDR-4209 PO (12:44)
--- NOTE | 2021-03-25 12:50 | NUR ---
COVID SWAB DONE AND SENT TO THE LAB
--- NOTE | 2021-03-25 14:00 | NUR ---
MAURY ELLISON [phone] ASKED FOR US TO CONTACT DR. GR @[phone]
--- NOTE | 2021-03-25 14:02 | NUR ---
DR. GR AT [phone] VARGAS
--- NOTE | 2021-03-25 15:51 | NUR ---
DR HUSAIN AT THE BEDSIDE
[2021-03-25] MEDS ORDERED: HYDROMORPHONE 1 MG/1 ML DISP.SYRIN ONE (16:23)
[2021-03-25] MEDS ORDERED: MORPHINE SULFATE INJ 2 MG/ML DISP.SYRIN IV PRN (16:30)
[2021-03-25] MEDS ORDERED: Z GUARD REMEDY 2 OZ OINT TP PRN (16:30)
[2021-03-25] MEDS ORDERED: ACETAMINOPHEN 325 MG TABLET PO PRN (16:30)
[2021-03-25] MEDS: PANTOPRAZOLE 40 MG VIAL IV SCH (16:30)
[2021-03-25] MEDS: ENOXAPARIN SODIUM 40 MG/0.4 ML DISP.SYRIN SQ SCH (16:30)
[2021-03-25] MEDS: HYDROMORPHONE 1 MG/1 ML DISP.SYRIN IV PRN ×2 (16:59→20:59)
--- NOTE | 2021-03-25 17:11 | NUR ---
PT GOING TO M/S 324.1
--- NOTE | 2021-03-25 17:49 | NUR ---
REPORT GIVEN TO MIRELLA Stevenson RN FOR PRANAY
--- NOTE | 2021-03-25 18:57 | NUR ---
PT TRANSFERRING TO 324 [facility]IA [facility] PROTOCOL. ALL BELONGINGS WITH PT
--- NOTE | 2021-03-25 19:30 | NUR ---
MS RN OPENING NOTE PATIENT WAS ALREADY IN THE ROOM DURING THE PRANAY OF REPORT. ENDORSED TO ME BY LADY THAT PATIENT CAME IN AT 1900. WILL DO ADMISSION PROCESS.
--- NOTE | 2021-03-25 19:45 | NUR ---
ADMISSION NOTE PATIENT A/OX4. ABLE TO MAKE NEEDS KNOWN AND AMBULATORY WITH STEADY GAIT. NO S/S OF APPARENT DISTRESS ON ROOM AIR. PATIENT HAS TOLERABLE PAIN. PAIN MEDICATION NOT DUE YET. PATIENT WISHES TO BE FULL CODE. ADMITS THAT SHE SMKES 3/4 PACK OF CIGARETTES A DAY. PATIENT REPORTS BEING VACCINATED WITH PFIZER 2 DOSES. ID BAND ON PATIENT. BELONGINGS LIST SIGNED. PATIENT HAS R.HAND IV #20G WORKING AND FLUSHING WELL. WILL FOLLOW THROUGH DOCTOR'S ORDERS.
[2021-03-25] MEDS: IV D5/0.45 NACL 1,000 ML IV PRN (19:59)
[2021-03-25 20:00] VITALS: BP 113/56
[2021-03-25] MEDS: ONDANSETRON HCL/PF 4 MG/2 ML VIAL IVP PRN (20:58)
[2021-03-25] MEDS: PIPERACILLIN /TAZOBACTAM 3.375 G in IV D5W 100 ML IV SCH (20:58)
[2021-03-25] MEDS ORDERED: PIPERACILLIN /TAZOBACTAM 3.375 G in IV D5W 50 ML IV SCH (21:00)
[2021-03-26] MEDS: HYDROMORPHONE 1 MG/1 ML DISP.SYRIN IV PRN ×4 (00:59→20:04)
[2021-03-26] MEDS: PIPERACILLIN /TAZOBACTAM 3.375 G in IV D5W 100 ML IV SCH ×3 (04:10→20:05)
[2021-03-26] MEDS: ONDANSETRON HCL/PF 4 MG/2 ML VIAL IVP PRN ×2 (04:25→12:36)
[2021-03-26] MEDS: LORAZEPAM INJ 2 MG/ML VIAL IV PRN (04:25)
--- NOTE | 2021-03-26 04:30 | NUR ---
MS RN NOTE PATIENT C/O NAUSEA. GIVEN ZOFRAN. ALSO GIVEN ATIVAN 0.5 ML, PATIENT SEEMS ANXIOUS AND C/O NOT BEING BE ABLE TO SLEEP.
--- NOTE | 2021-03-26 06:41 | NUR ---
MS RN CLOSING NOTE PATIENT IN BED WITH EYES CLOSED, EASY TO AROUSE. A/OX4. NO S/S OF APPARENT DISTRESS ON ROOM AIR. PAIN MANAGED WITH MEDICATIONS. IV ZOSYN STILL RUNNING @25 ML/HR. ALL NEEDS ATTENDED. ALL SCHEDULED MEDS ADMINISTERED. SAFETY KEPT IN PLACE THE WHOLE SHIFT. WILL ENDORSE TO MORNING SHIFT RN FOR CONTINUITY OF CARE.
[2021-03-26 06:48] LABS: BASOPHILS % (AUTO) 0.3 % (0.0-2.0); EOSINOPHILS % (AUTO) 0.8 % (0.0-6.0); HEMATOCRIT 38 % (33-45); HEMOGLOBIN 12.7 g/dL (11.5-14.8); LYMPHOCYTES # (AUTO) 1.7 K/uL (0.8-4.8); LYMPHOCYTES % (AUTO) 13.3 % (20.0-44.0); MEAN CORPUSCULAR HGB CONC 34 g/dl (31.0-36.0); MEAN CORPUSCULAR VOLUME 92 fL (82-100); MONOCYTES # (AUTO) 0.9 K/uL (0.1-1.30); MONOCYTES % (AUTO) 6.8 % (2.0-12.0); NEUTROPHILS % (AUTO) 78.8 % (43.0-81.0); PLATELET COUNT (AUTO) 293 K/uL (150-450); RED BLOOD CELL COUNT(AUTO) 4.08 MIL/uL (4.0-5.2); WHITE BLOOD COUNT (AUTO) 12.7 K/uL (4.3-11.0)
[2021-03-26 07:11] LABS: CALCIUM, SERUM 8.3 mg/dL (8.5-10.1); CREATININE 0.9 mg/dL (0.6-1.3); MAGNESIUM 1.9 mg/dL (1.8-2.4); PHOSPHORUS 3.1 mg/dL (2.5-4.9); POTASSIUM 3.9 mmol/L (3.5-5.1)
--- NOTE | 2021-03-26 07:42 | NUR ---
MS RN OPENING NOTES RECEIVED PATIENT IN BED, ASLEEP. PATIENT ON ROOM AIR; BREATHING EVEN AND UNLABORED; N SOB NOTED. NO S/S OF PAIN SUCH FACIAL GRIMACING, MOANING OR GUARDING AT THIS TIME. IV ACCESS AT R HAND RUNNING 1/4 NS @ 75 MLS/HR. PATIENT IS NPO AT THIS TIME. SAFETY PRECAUTIONS IN PLACE; BED IN LOW POSITION AND LOCKED, RAILS UP X2, CALL LIGHT WITHIN REACH. WILL CONTINUE TO MONITOR PATIENT.
[2021-03-26 08:32] LABS: THYROID STIMULATING HORMONE 1.281 uIU/mL (0.358-3.74)
[2021-03-26] MEDS: PANTOPRAZOLE 40 MG VIAL IV SCH (09:14)
--- NOTE | 2021-03-26 12:28 | NUR ---
RN NOTES Pt COMPLAINING OF 8/10 PAIN IN LOWER ABDOMEN AND REQUESTING PAIN MEDICATION. VITAL SIGNS WITHIN NORMAL LIMITS: BP; 107/68 AND HR 102 O2 97% IN ROOM AIR
--- NOTE | 2021-03-26 12:40 | NUR ---
RN NOTES PRN DILAUDID GIVEN FOR PAIN 12/02. WILL REASSESS.
[2021-03-26] MEDS: ENOXAPARIN SODIUM 40 MG/0.4 ML DISP.SYRIN SQ SCH (16:06)
--- NOTE | 2021-03-26 18:44 | NUR ---
MS RN CLOSING NOTES RECEIVED PATIENT IN BED, AWAKE, A/O X4. PATIENT ON ROOM AIR; BREATHING EVEN AND UNLABORED; N SOB NOTED. PAIN TREATED WITH PRN MEDICATION PER MD ORDER. IV ACCESS AT R HAND RUNNING D5 1/2 NS @ 75 MLS/HR. PATIENT REMAINS NPO AT THIS TIME. ALL NEEDS ATTENDED DURING THE DAY. SAFETY PRECAUTIONS IN PLACE; BED IN LOW POSITION AND LOCKED, RAILS UP X2, CALL LIGHT WITHIN REACH. WILL ENDORSE TO CANOE BUILDER NURSE FOR PRANAY.
--- NOTE | 2021-03-26 19:18 | NUR ---
MS RN OPENING NOTES PATIENT WAS SEEN AWAKE IN BED RESTING. A/O X4. PATIENT'S STABLE ON ROOM AIR. IV ACCESS IN R HAND, WHICH IS INTACT, PATENT, AND FLUSHING WELL. PATIENT REMAINS NPO AT THIS TIME. PATIENT'S IN NO ACUTE DISTRESS AT THIS TIME. SAFETY MEASURES IN PLACE: BED LOCKED, SIDE RAILS UP X2, AND CALL LIGHT WITHIN REACH OF THE PATIENT. WILL CONTINUE TO MONITOR THE PATIENT.
[2021-03-26 20:00] VITALS: BP 127/78
--- NOTE | 2021-03-26 20:04 | NUR ---
MS RN NOTES PATIENT C/O 10/10 PAIN. PATIENT WAS GIVEN 1MG OF DILAUDID IV. WILL REASSESS THE PAIN AT 2033.
[2021-03-27] MEDS: HYDROMORPHONE 1 MG/1 ML DISP.SYRIN IV PRN ×6 (01:03→21:54)
--- NOTE | 2021-03-27 01:03 | NUR ---
MS RN NOTES PATIENT C/O 9/10 PAIN. PATIENT WAS GIVEN 1MG OF DILAUDID IV. WILL REASSESS THE PAIN AT 0133
[2021-03-27] MEDS: PIPERACILLIN /TAZOBACTAM 3.375 G in IV D5W 100 ML IV SCH ×3 (04:01→20:32)
--- NOTE | 2021-03-27 05:37 | NUR ---
MS RN NOTES PATIENT C/O 10/10 PAIN. PATIENT WAS GIVEN 1MG OF DILAUDID IV. WILL REASSESS THE PAIN AT 0607.
--- NOTE | 2021-03-27 06:59 | NUR ---
MS RN CLOSING NOTES PATIENT WAS SEEN SLEEPING IN BED. A/O X4. PATIENT'S STABLE ON ROOM AIR. IV ACCESS IN LFA #22, WHICH IS RUNNING ZOSYN AT THIS TIME. PATIENT REMAINS NPO AT THIS TIME. PATIENT'S IN NO ACUTE DISTRESS AT THIS TIME. SAFETY MEASURES IN PLACE: BED LOCKED, SIDE RAILS UP X2, AND CALL LIGHT WITHIN REACH OF THE PATIENT. WILL ENDORSE CARE TO THE DAY SHIFT NURSE.
[2021-03-27 07:05] LABS: BASOPHILS % (AUTO) 0.4 % (0.0-2.0); EOSINOPHILS % (AUTO) 0.9 % (0.0-6.0); HEMATOCRIT 37 % (33-45); HEMOGLOBIN 12.6 g/dL (11.5-14.8); LYMPHOCYTES # (AUTO) 1.8 K/uL (0.8-4.8); LYMPHOCYTES % (AUTO) 13.8 % (20.0-44.0); MEAN CORPUSCULAR HGB CONC 34 g/dl (31.0-36.0); MEAN CORPUSCULAR VOLUME 92 fL (82-100); NEUTROPHILS # (AUTO) 9.8 K/uL (1.8-8.9); NEUTROPHILS % (AUTO) 76.9 % (43.0-81.0); PLATELET COUNT (AUTO) 294 K/uL (150-450); RED BLOOD CELL COUNT(AUTO) 4.06 MIL/uL (4.0-5.2); WHITE BLOOD COUNT (AUTO) 12.7 K/uL (4.3-11.0)
[2021-03-27 07:21] LABS: CALCIUM, SERUM 8.6 mg/dL (8.5-10.1); CREATININE 0.8 mg/dL (0.6-1.3); POTASSIUM 3.5 mmol/L (3.5-5.1)
--- NOTE | 2021-03-27 07:30 | NUR ---
RN NOTES RECEIVED PT ON BED AWAKE, VERBALLY RESPONSIVE. ON ROOM AIR, NO SOB NOTED. BREATHING EVEN AND UNLABORED. WITH IV ACCESS ON LFA #22G WITH D5 1/2NS RUNNING @75ML/HR. REMAINS ON NPO. NO C/O PAIN AT THIS TIME. SAFETY MEASURES IN PLACE, BED LOCKED AND IN LOWEST POSITION, SR UP X2, CALL LIGHT PLACED WITHIN EASY REACH. WILL CONTINUE TO MONITOR.
[2021-03-27] MEDS: PANTOPRAZOLE 40 MG VIAL IV SCH (08:11)
--- NOTE | 2021-03-27 09:28 | NUR ---
RN NOTES PT WITH C/O 10/10 ABDOMINAL PAIN, DIALUDID 1MG IVP GIVEN ORDERED. REPOSITIONED FOR COMFORT. WILL CONTINUE TO MONITOR.
--- NOTE | 2021-03-27 13:32 | NUR ---
RN NOTES DIALUDID 1MG IVP GIVEN FOR C/O 9/10 ABDOMINAL PAIN. WILL CONTINUE TO MONITOR.
[2021-03-27] MEDS: ENOXAPARIN SODIUM 40 MG/0.4 ML DISP.SYRIN SQ SCH (16:42)
[2021-03-27] MEDS: IV D5/0.45 NACL 1,000 ML IV PRN (17:05)
--- NOTE | 2021-03-27 17:32 | NUR ---
RN NOTES DIALUDID 1MG IVP GIVEN FOR C/O 9/10 ABDOMINAL PAIN. WILL CONTINUE TO MONITOR.
--- NOTE | 2021-03-27 18:43 | NUR ---
MS RN CLOSING NOTES PT ON BED AWAKE, A/O X4, VERBALLY RESPONSIVE. ON ROOM AIR, NO SOB NOTED. BREATHING EVEN AND UNLABORED. WITH IV ACCESS ON RFA #20G INTACT AND PATENT, WITH D5 1/2NS RUNNING @75ML/HR. REMAINS ON NPO. PT AMBULATORY WITH BRP. MEDICATED FOR PAIN NEEDED. SAFETY MEASURES IN PLACE, BED LOCKED AND IN LOWEST POSITION, SR UP X2, CALL LIGHT PLACED WITHIN EASY REACH. WILL CONTINUE TO MONITOR.
--- NOTE | 2021-03-27 19:30 | NUR ---
MS MICHOACANO OPENING NOTES PATIENT WAS SEEN AWAKE RESTING IN BED. A/O X4. PATIENT'S STABLE ON ROOM AIR. IV ACCESS IN RFA #22, WHICH IS INTACT, PATENT, AND FLUSHING WELL. PATIENT REMAINS NPO AT THIS TIME. PATIENT'S IN NO ACUTE DISTRESS AT THIS TIME. SAFETY MEASURES IN PLACE: BED LOCKED, SIDE RAILS UP X2, AND CALL LIGHT WITHIN REACH OF THE PATIENT. WILL CONTINUE TO MONITOR THE PATIENT. Addendum: 03/27/21 at 1959 by COY ARREOLA RN DISREGARD THE LAST NOTE MS MICHOACANO OPENING NOTES PATIENT WAS SEEN AWAKE RESTING IN BED. A/O X4. PATIENT'S STABLE ON ROOM AIR. IV ACCESS IN RFA #22, WHICH IS INTACT, PATENT, AND FLUSHING WELL. PATIENT REMAINS NPO AT THIS TIME. PATIENT'S IN NO ACUTE DISTRESS AT THIS TIME. SAFETY MEASURES IN PLACE: BED LOCKED, SIDE RAILS UP X2, AND CALL LIGHT WITHIN REACH OF THE PATIENT. WILL CONTINUE TO MONITOR THE PATIENT.
--- NOTE | 2021-03-27 19:59 | NUR ---
MS RN OPENING NOTES PATIENT WAS SEEN AWAKE RESTING IN BED. A/O X4. PATIENT'S STABLE ON ROOM AIR. IV ACCESS IN RFA #22, WHICH IS INTACT, PATENT, AND FLUSHING WELL. PATIENT REMAINS NPO AT THIS TIME. PATIENT'S IN NO ACUTE DISTRESS AT THIS TIME. SAFETY MEASURES IN PLACE: BED LOCKED, SIDE RAILS UP X2, AND CALL LIGHT WITHIN REACH OF THE PATIENT. WILL CONTINUE TO MONITOR THE PATIENT.
[2021-03-27 20:00] VITALS: BP 125/72
[2021-03-27] MEDS: LORAZEPAM INJ 2 MG/ML VIAL IV PRN (20:32)
--- NOTE | 2021-03-27 20:32 | NUR ---
MS RÍOS NOTES PATIENT C/O ANXIETY. PATIENT WAS ADMINISTERED 1MG OF ATIVAN IV. WILL CONTINUE TO MONITOR THE PATIENT. Addendum: 03/27/21 at 2246 by COY ARREOLA RN MS RÍOS NOTES PATIENT C/O ANXIETY. PATIENT WAS ADMINISTERED 1MG OF ATIVAN IV AT THIS TIME. WILL CONTINUE TO MONITOR THE PATIENT.
--- NOTE | 2021-03-27 21:54 | NUR ---
MS RN NOTES PATIENT C/O 9/10 PAIN. PATIENT WAS GIVEN 1MG OF DILAUDID IV. WILL REASSESS THE PAIN AT 2223.
[2021-03-28] MEDS: HYDROMORPHONE 1 MG/1 ML DISP.SYRIN IV PRN ×4 (03:25→20:03)
--- NOTE | 2021-03-28 03:25 | NUR ---
MS RÍOS NOTES PATIENT C/O 10 PAIN. PATIENT WAS GIVEN 1MG OF DILAUDID IV. WILL REASSESS THE PAIN AT 0325. Addendum: 03/28/21 at 0327 by COY ARREOLA RN DISREGARD THE LAST NOTE. UPDATED NOTE BELOW. MS RÍOS NOTES PATIENT C/O 10 PAIN. PATIENT WAS GIVEN 1MG OF DILAUDID IV. WILL REASSESS THE PAIN AT 0355.
[2021-03-28] MEDS: PIPERACILLIN /TAZOBACTAM 3.375 G in IV D5W 100 ML IV SCH ×3 (05:52→20:03)
[2021-03-28 07:05] LABS: BASOPHILS % (AUTO) 0.5 % (0.0-2.0); EOSINOPHILS % (AUTO) 2.6 % (0.0-6.0); HEMATOCRIT 37 % (33-45); HEMOGLOBIN 12.6 g/dL (11.5-14.8); LYMPHOCYTES # (AUTO) 1.6 K/uL (0.8-4.8); LYMPHOCYTES % (AUTO) 20.2 % (20.0-44.0); MEAN CORPUSCULAR HGB CONC 34 g/dl (31.0-36.0); MEAN CORPUSCULAR VOLUME 92 fL (82-100); MONOCYTES # (AUTO) 0.7 K/uL (0.1-1.30); MONOCYTES % (AUTO) 8.2 % (2.0-12.0); NEUTROPHILS # (AUTO) 5.5 K/uL (1.8-8.9); NEUTROPHILS % (AUTO) 68.5 % (43.0-81.0); PLATELET COUNT (AUTO) 316 K/uL (150-450); RED BLOOD CELL COUNT(AUTO) 4.08 MIL/uL (4.0-5.2)
[2021-03-28 07:14] LABS: CALCIUM, SERUM 8.8 mg/dL (8.5-10.1); CREATININE 0.9 mg/dL (0.6-1.3); POTASSIUM 3.6 mmol/L (3.5-5.1)
--- NOTE | 2021-03-28 07:40 | NUR ---
RN OPENING NOTES RECEIVED PT ON BED AWAKE, VERBALLY RESPONSIVE. NO SIGNS OF ACUTE DISTRESS NOTED. ON ROOM AIR, NO SOB NOTED. BREATHING EVEN AND UNLABORED. WITH IV ACCESS ON RFA #22G WITH D5 1/2NS RUNNING @75ML/HR. REMAINS ON NPO. NO S/SX OF PAIN NOTED AT THIS TIME. SAFETY MEASURES IN PLACE, BED LOCKED AND IN LOWEST POSITION, SR UP X2, CALL LIGHT PLACED WITHIN EASY REACH. WILL CONTINUE TO MONITOR.
[2021-03-28 08:00] VITALS: BP 115/74
--- NOTE | 2021-03-28 08:00 | NUR ---
MS RN CLOSING NOTES PATIENT WAS SEEN SLEEPING IN BED. A/O X4. PATIENT'S STABLE ON ROOM AIR. IV ACCESS IN RFA #22, WHICH IS INTACT, PATENT, AND FLUSHING WELL. PATIENT'S IN NO ACUTE DISTRESS AT THIS TIME. SAFETY MEASURES IN PLACE: BED LOCKED, SIDE RAILS UP X2, AND CALL LIGHT WITHIN REACH OF THE PATIENT. WILL CONTINUE TO MONITOR THE PATIENT.
[2021-03-28] MEDS: PANTOPRAZOLE 40 MG VIAL IV SCH (08:10)
--- NOTE | 2021-03-28 08:10 | NUR ---
RN NOTES DILAUDID 1 MG IVP GIVEN FOR C/O 9/10 ABDOMINAL PAIN. WILL MONITOR FOR EFFECTIVENESS.
--- NOTE | 2021-03-28 08:40 | NUR ---
RN NOTES ANDREA MIRZA, SORAYA CAME TO SEE PT, WITH NEW ORDERS RECEIVED, DIET UPGRADED TO CLEAR LIQUIDS. ALSO TRIED TO CALL PT'S DAUGHTER EZ PER REQUEST BUT NO ANSWER.
[2021-03-28] MEDS: ENOXAPARIN SODIUM 40 MG/0.4 ML DISP.SYRIN SQ SCH (16:30)
--- NOTE | 2021-03-28 18:53 | NUR ---
MS RN CLOSING NOTES PT RESTING ON BED, AWAKE, A/O X4, VERBALLY RESPONSIVE. ON ROOM AIR, NO SOB NOTED, NOT IN ACUTE RESPIRATORY DISTRESS NOTED. BREATHING EVEN AND UNLABORED. WITH IV ACCESS ON RFA #20G INTACT AND PATENT, WITH D5 1/2NS RUNNING @75ML/HR. REMAINS ON NPO. PT AMBULATORY WITH BRP. MEDICATED FOR PAIN NEEDED. SAFETY MEASURES IN PLACE, BED LOCKED AND IN LOWEST POSITION, SR UP X2, CALL LIGHT PLACED WITHIN EASY REACH. WILL ENDORSE TO THE INCOMING SHIFT.
[2021-03-28 20:00] VITALS: BP 110/64
[2021-03-28] MEDS: ONDANSETRON HCL/PF 4 MG/2 ML VIAL IVP PRN (20:03)
[2021-03-29] MEDS: HYDROMORPHONE 1 MG/1 ML DISP.SYRIN IV PRN ×2 (00:20→08:22)
[2021-03-29] MEDS: PIPERACILLIN /TAZOBACTAM 3.375 G in IV D5W 100 ML IV SCH (05:01)
[2021-03-29 06:48] LABS: BASOPHILS % (AUTO) 0.3 % (0.0-2.0); EOSINOPHILS % (AUTO) 4.1 % (0.0-6.0); HEMATOCRIT 37 % (33-45); HEMOGLOBIN 12.6 g/dL (11.5-14.8); LYMPHOCYTES % (AUTO) 36.3 % (20.0-44.0); MEAN CORPUSCULAR HGB CONC 34 g/dl (31.0-36.0); MEAN CORPUSCULAR VOLUME 92 fL (82-100); MONOCYTES # (AUTO) 0.5 K/uL (0.1-1.30); MONOCYTES % (AUTO) 8.7 % (2.0-12.0); NEUTROPHILS # (AUTO) 2.8 K/uL (1.8-8.9); NEUTROPHILS % (AUTO) 50.6 % (43.0-81.0); PLATELET COUNT (AUTO) 369 K/uL (150-450); RED BLOOD CELL COUNT(AUTO) 4.06 MIL/uL (4.0-5.2); WHITE BLOOD COUNT (AUTO) 5.6 K/uL (4.3-11.0)
--- NOTE | 2021-03-29 06:55 | NUR ---
MS RN CLOSING NOTE PATIENT IN BED, A/OX4. NO S/S OF APPARENT DISTRESS. PAIN TOLERABLE AT THE MOMENT AND DO NOT WANT PAIN MEDICATION AT THIS TIME. IV ZOSYN STILL RUNNING @25ML/HR. PATIENT AMBULATORY WITH STEADY GAIT. ALL NEEDS ATTENDED. ALL SCHEDULED MEDICATION ADMINISTERED. NO SIGNIFICANT CHANGE SINCE LAST ENDORSEMENT. WILL ENDORSE TO MORNING SHIFT RN FOR CONTINUITY OF CARE.
[2021-03-29 07:07] LABS: CALCIUM, SERUM 8.9 mg/dL (8.5-10.1); CREATININE 0.8 mg/dL (0.6-1.3); POTASSIUM 3.4 mmol/L (3.5-5.1)
[2021-03-29] MEDS ORDERED: POTASSIUM CHLORIDE 20 MEQ POWDER PACKET PO ONE (07:30)
[2021-03-29] MEDS ORDERED: HYDR-3972 PO (07:33)
[2021-03-29] MEDS ORDERED: AMOX-430 PO (07:33)
[2021-03-29] MEDS ORDERED: MAG30ORA PO (07:33)
[2021-03-29] MEDS ORDERED: PANT40TA2 PO (07:33)
[2021-03-29] MEDS: PANTOPRAZOLE 40 MG VIAL IV SCH (08:07)
--- NOTE | 2021-03-29 10:58 | NUR ---
RN NOTES PATIENT SEEN BY DR. MIRZA TODAY W/ ORDER FOR DISCHARGE TO HOME. DISCHARGE INSTRUCTION AND EDUCATION PROVIDED TO PATIENT, VERBALIZED UNDERSTANDING. MEDICATIONS ELECTRONICALLY SENT TO PREFERRED PHARMACY. DISCHARGE FORM AND BELONGINGS LIST FORM SIGNED BY PATIENT AND ALL BELONGINGS ACCOUNTED FOR. NAME ARMBAND KEPT BY PATIENT; IV LINE REMOVED. NO SKIN ISSUE NOTED. PATIENT IS AMBULATORY W/ STEADY GAIT AND WAS ACCOMPANIED BY . PICKED UP VIA PRIVATE CAR. CHARGE NURSE AND MD AWARE OF DISCHARGE.
== END 2021-03-29 11:00 | disposition home or self-care (01) | DRG 720 ==
LOC: ER 09:57 → MED 17:29
PROVIDERS: ADMIT Nurse Practitioner Acute Care; ATTEND Nurse Practitioner Acute Care
DX: A41.9 Sepsis, unspecified organism (principal); D25.9 Leiomyoma of uterus, unspecified; Z20.822 Contact with and (suspected) exposure to COVID-19; K57.32 Diverticulitis of large intestine without perforation or abscess without bleeding; E66.01 Morbid (severe) obesity due to excess calories; Z68.36 Body mass index [BMI] 36.0-36.9, adult; J45.909 Unspecified asthma, uncomplicated; R42 Dizziness and giddiness; Z88.5 Allergy status to narcotic agent; Z90.49 Acquired absence of other specified parts of digestive tract; Z79.899 Other long term (current) drug therapy; F17.210 Nicotine dependence, cigarettes, uncomplicated; Z98.890 Other specified postprocedural states; Z87.19 Personal history of other diseases of the digestive system
CPT/HCPCS: 36415; 71045-TC; 80048-TC; 80076-TC; 81001; 83690-TC; 83735-TC; 84100-TC; 84443-TC; 84484-TC; 85025-TC; 87040-TC; 87081-TC; C9113; C9803; G0378; J1170; J1650; J2060; J2405; J2543; J3010; J3490; J7030; J7050; J7060

== ENCOUNTER 2021-04-11 10:43 | Emergency (ER) | payer BC ==
[~2021-04-11] VITALS: Ht 165.1 cm; Wt 102.5 kg
[~2021-04-11 10:43] MED LIST changes: +AMOX-430 PO; -DAPS25TA2 PO; -EYE DROPS; +HYDR-4209 PO; -IBUP-1957 PO; -LORA-259 PO; +MAG30ORA PO; +MULT-447 PO; +PANT40TA2 PO; -TACR5CAP2 PO; -advil prn; -tylenol prn
--- NOTE | 2021-04-11 10:43 | NUR ---
PT BIBRA FROM HOME C/O GEN BODY PAIN FOR 3 DAYS. PT IS AAOX4, NOT IN RESPIRATORY DISTRESS, V/S STABLE, KEPT RESTED AND COMFORTABLE. WILL CONTINUE TO MONITOR.
--- NOTE | 2021-04-11 10:54 | NUR ---
AT BEDSIDE FOR EVAL.
[2021-04-11] MEDS ORDERED: IV NS 0.9% 1,000 ML BAG IV ONE (11:00)
--- NOTE | 2021-04-11 11:05 | NUR ---
IV LINE ESTABLISHED BLOOD DRAWN AND SENT TO LAB.
--- NOTE | 2021-04-11 11:10 | NUR ---
BLUEPRINT READER AT BEDSIDE FOR XRAY.
--- NOTE | 2021-04-11 11:11 | NUR ---
PT UNABLE TO PROVIDE URINE SPECIMEN THIS TIME.
[2021-04-11 11:12] LABS: HEMOGLOBIN 14.2 g/dL (11.5-14.8); MONOCYTES # (AUTO) 0.4 K/uL (0.1-1.30)
[2021-04-11 11:15] LABS: BASOPHILS % (AUTO) 0.3 % (0.0-2.0); HEMATOCRIT 43 % (33-45); LYMPHOCYTES # (AUTO) 1.3 K/uL (0.8-4.8); LYMPHOCYTES % (AUTO) 21.8 % (20.0-44.0); MEAN CORPUSCULAR HGB CONC 33 g/dl (31.0-36.0); MEAN CORPUSCULAR VOLUME 92 fL (82-100); MONOCYTES % (AUTO) 7.6 % (2.0-12.0); NEUTROPHILS % (AUTO) 69.3 % (43.0-81.0); PLATELET COUNT (AUTO) 289 K/uL (150-450); RED BLOOD CELL COUNT(AUTO) 4.67 MIL/uL (4.0-5.2); WHITE BLOOD COUNT (AUTO) 5.8 K/uL (4.3-11.0)
--- NOTE | 2021-04-11 11:27 | NUR ---
PT IS WHEELED TO CT SCAN.
[2021-04-11 11:28] LABS: ALANINE AMINOTRANSFERASE 21 U/L (12-78); ALBUMIN 3.2 g/dL (3.4-5.0); ALKALINE PHOSPHATASE 75 U/L (46-116); ASPARTATE AMINOTRANSFERASE 13 U/L (15-37); BILIRUBIN,DIRECT 0.1 mg/dL (0.0-0.2); BILIRUBIN,TOTAL 0.3 mg/dL (0.2-1.0)
[2021-04-11 11:29] LABS: ALCOHOL, BLOOD < 3 mg/dL (0-0)
[2021-04-11 11:55] LABS: CREATININE 0.8 mg/dL (0.6-1.3); POTASSIUM 4.5 mmol/L (3.5-5.1)
[2021-04-11 12:02] LABS: CALCIUM, SERUM 8.5 mg/dL (8.5-10.1)
--- NOTE | 2021-04-11 12:40 | NUR ---
URINE SPECIMEN COLLECTED AND SENT TO LAB.
[2021-04-11 12:48] LABS: BILIRUBIN,URINE NEGATIVE (NEGATIVE); COLOR,URINE YELLOW (YELLOW); LEUKOCYTE ESTERASE ,URINE NEGATIVE (NEGATIVE); NITRITE, URINE NEGATIVE (NEGATIVE); PROTEIN,URINE NEGATIVE (NEGATIVE); UGLUCOSE NEGATIVE (NEGATIVE); UROBILINOGEN,URINE 0.2 EU/dL (0.2)
[2021-04-11 12:58] LABS: BACTERIA,URINE None seen /HPF (None Seen); SQUAMOUS EPITHELIAL CELL,UR Rare /HPF (None Seen); WBC,URINE NONE SEEN /HPF (0-3)
[2021-04-11 13:30] VITALS: BP 129/82
== END 2021-04-11 13:30 | disposition home or self-care (01) ==
LOC: ER 10:46
DX: R10.9 Unspecified abdominal pain (principal); R53.1 Weakness; Z88.6 Allergy status to analgesic agent
CPT/HCPCS: 36415; 70450; 71045; 80048; 80076; 80307; 80320; 81001; 82962; 84443; 84484; 85025; 93005; 96360; 99285; J7030; G0480

== ENCOUNTER 2021-08-10 19:20 | Emergency (ER) | payer BC ==
[~2021-08-10] VITALS: Ht 165.1 cm; Wt 99.8 kg
[2021-08-10 20:04] VITALS: BP 141/91
--- NOTE | 2021-08-10 20:04 | NUR ---
PT C/O OF BACK PAIN & R SHOULDER PAIN FOR 3 WEEKS. TOOK TYLENOL WITH NO RELIEF. PT A/OX4. TOLERATING R/A WELL. AMBULATORY WITH STEADY GAIT
--- NOTE | 2021-08-10 20:05 | NUR ---
BIBS THIS 51YO FEMALE PATIENT, AMBULATORY, AO4. PATIENT HAS BEEN HAVING CHRONIC RIGHT SHOULDER PAIN FOR 3 WEEKS, BUT TODAY IT IS 02/01. PATIENT ONLY TOOK TYLENOL 350MG CLAIMED. PLACED COMFORTABLY IN BED. VITALS CHECKED.
--- NOTE | 2021-08-10 20:12 | NUR ---
SEEN BY DR CHAVEZ AT BEDSIDE.
--- NOTE | 2021-08-10 20:12 | NUR ---
HAT BODY INSPECTOR AT PT'S BEDSIDE
[2021-08-10] MEDS ORDERED: HYDROCODONE/APAP 5/325MG TABLET ONE (20:15)
[2021-08-10] MEDS ORDERED: KETOROLAC TROMETHAMINE INJ 60 MG/2 ML VIAL IM ONE ×2 (20:15→20:30)
--- NOTE | 2021-08-10 20:24 | NUR ---
DUE MEDS GIVEN
[2021-08-10] MEDS ORDERED: HYDROCODONE/APAP 5/325MG TABLET PO ONE (20:30)
[2021-08-10] MEDS ORDERED: HYDR-3972 PO (20:51)
[2021-08-10] MEDS ORDERED: IBUP-1957 PO (20:51)
--- NOTE | 2021-08-10 21:04 | NUR ---
PATIENT SIGNED DISCHARGE PAPERWORK, VERBALIZED UNDERSTANDING; PATIENT WILL GOLF CADDY PRESCRIBED MEDICATIONS TONIGHT AND F/U WITH PCP IF PAIN HAPPENS AGAIN; PATIENT LEFT UNIT, AMBULATORY WITH STEADY GAIT; PICKED UP BY
== END 2021-08-10 21:15 | disposition home or self-care (01) ==
LOC: ER 19:23
DX: M75.01 Adhesive capsulitis of right shoulder (principal); J45.909 Unspecified asthma, uncomplicated; Z98.890 Other specified postprocedural states; Z88.6 Allergy status to analgesic agent; Z79.899 Other long term (current) drug therapy
CPT/HCPCS: 73030; 96372; 99283; J1885

== ENCOUNTER 2022-01-24 15:15 | Emergency (ER) | payer BC ==
[~2022-01-24] VITALS: Ht 165.1 cm; Wt 99.8 kg
[~2022-01-24 15:15] MED LIST changes: +IBUP-1957 PO
--- NOTE | 2022-01-24 15:22 | NUR ---
bibra39 from home, c/o LLQ pain, had hernia surgery 3 months ago in [facility] fentanyl 100 mcg IM and zofran 4mg on scene. placed on bed, aaox4, breathing even and unlabored, in pain 10/10 ps.
[2022-01-24] MEDS ORDERED: ONDANSETRON HCL/PF 4 MG/2 ML VIAL ONE (15:23)
[2022-01-24] MEDS ORDERED: ONDANSETRON HCL/PF 4 MG/2 ML VIAL IVP ONE (15:30)
--- NOTE | 2022-01-24 15:32 | NUR ---
IV LINE ESTABLISHED; PHLEB AT BEDSIDE, BLOOD DRAWN AND SENT TO LAB
[2022-01-24 15:48] LABS: BASOPHILS # (AUTO) 0.1 K/uL (0.0-0.2); BASOPHILS % (AUTO) 0.9 % (0.0-2.0); EOSINOPHILS % (AUTO) 2.2 % (0.0-6.0); HEMATOCRIT 45 % (33-45); HEMOGLOBIN 14.7 g/dL (11.5-14.8); LYMPHOCYTES # (AUTO) 3.7 K/uL (0.8-4.8); LYMPHOCYTES % (AUTO) 37.6 % (20.0-44.0); MEAN CORPUSCULAR HGB CONC 33 g/dl (31.0-36.0); MEAN CORPUSCULAR VOLUME 91 fL (82-100); MONOCYTES # (AUTO) 0.6 K/uL (0.1-1.30); MONOCYTES % (AUTO) 5.8 % (2.0-12.0); NEUTROPHILS # (AUTO) 5.2 K/uL (1.8-8.9); NEUTROPHILS % (AUTO) 53.5 % (43.0-81.0); PLATELET COUNT (AUTO) 269 K/uL (150-450); RED BLOOD CELL COUNT(AUTO) 4.87 MIL/uL (4.0-5.2); WHITE BLOOD COUNT (AUTO) 9.7 K/uL (4.3-11.0)
[2022-01-24] MEDS ORDERED: HYDROMORPHONE 1 MG/1 ML DISP.SYRIN ONE (15:50)
[2022-01-24 15:56] LABS: CALCIUM, SERUM 9.4 mg/dL (8.5-10.1); CREATININE 0.8 mg/dL (0.6-1.3); POTASSIUM 4.1 mmol/L (3.5-5.1)
[2022-01-24] MEDS ORDERED: HYDROMORPHONE 1 MG/1 ML DISP.SYRIN IV ONE (16:00)
[2022-01-24 16:07] LABS: ALBUMIN 3.7 g/dL (3.4-5.0); BILIRUBIN,DIRECT 0.1 mg/dL (0.0-0.2); BILIRUBIN,TOTAL 0.1 mg/dL (0.2-1.0); TOTAL PROTEIN, SERUM 7.7 g/dL (6.4-8.2)
--- NOTE | 2022-01-24 16:09 | NUR ---
URINE SENT TO LAB
[2022-01-24] MEDS ORDERED: IOHEXOL-300 100 ML VIAL IV ONE (16:10)
[2022-01-24] MEDS ORDERED: IV NS 0.9% 250 ML IV ONE (16:10)
[2022-01-24] MEDS ORDERED: CT SWABBABLE VALVE TRANS SET 1 EA INFUS.SET MC ONE (16:10)
[2022-01-24 18:13] LABS: BILIRUBIN,URINE NEGATIVE (NEGATIVE); COLOR,URINE YELLOW (YELLOW); LEUKOCYTE ESTERASE ,URINE NEGATIVE (NEGATIVE); NITRITE, URINE NEGATIVE (NEGATIVE); PH,URINE 5.5 (5.0-8.0); PROTEIN,URINE NEGATIVE (NEGATIVE); UGLUCOSE NEGATIVE (NEGATIVE); UROBILINOGEN,URINE 0.2 EU/dL (0.2)
[2022-01-24 18:26] LABS: BACTERIA,URINE 1+ /HPF (None Seen); CALCIUM OXALATE CRYSTALS,UR Many /HPF (None Seen); MUCUS,URINE Many /LPF (None Seen); RBC,URINE 51-80 /HPF (0-2); WBC,URINE 0-2 /HPF (0-3)
--- NOTE | 2022-01-24 20:03 | NUR ---
IV removed. Catheter intact and site benign. Pressure and 4x4 applied to site. No bleeding noted.
--- NOTE | 2022-01-24 20:16 | NUR ---
Patient discharged to home in stable condition. Written and verbal after care instructions given. Patient verbalizes understanding of instruction.
[2022-01-24 20:17] VITALS: BP 105/68
== END 2022-01-24 20:07 | disposition home or self-care (01) ==
LOC: ER 15:23
DX: R10.32 Left lower quadrant pain (principal); K43.9 Ventral hernia without obstruction or gangrene; J45.909 Unspecified asthma, uncomplicated; Z88.8 Allergy status to other drugs, medicaments and biological substances; Z79.899 Other long term (current) drug therapy
CPT/HCPCS: 99285; 74177; 96374; 96375; 85025; 80048; 83690; 80076; 84703; 81001; 36415; J2405; J7050; Q9967; J1170

== ENCOUNTER 2022-03-26 10:36 | Emergency (ER) | payer BC ==
[~2022-03-26] VITALS: Ht 162.6 cm; Wt 90.7 kg
[2022-03-26] MEDS ORDERED: IV NS 0.9% 1,000 ML BAG IV ONE (11:00)
[2022-03-26] MEDS ORDERED: IV NS 0.9% 250 ML IV ONE (11:03)
[2022-03-26] MEDS ORDERED: IOHEXOL-300 100 ML VIAL IV ONE (11:03)
[2022-03-26] MEDS ORDERED: CT SWABBABLE VALVE TRANS SET 1 EA INFUS.SET MC ONE (11:03)
[2022-03-26] MEDS ORDERED: KETOROLAC TROMETHAMINE 15 MG/ML VIAL ONE (11:10)
[2022-03-26] MEDS ORDERED: KETOROLAC TROMETHAMINE INJ 30 MG/ML VIAL IV ONE (11:30)
--- NOTE | 2022-03-26 11:47 | NUR ---
BACK FROM CT VIA [facility]
[2022-03-26 11:55] LABS: BASOPHILS # (AUTO) 0.1 K/uL (0.0-0.2); BASOPHILS % (AUTO) 0.4 % (0.0-2.0); EOSINOPHILS % (AUTO) 1.2 % (0.0-6.0); HEMATOCRIT 46 % (33-45); HEMOGLOBIN 15.2 g/dL (11.5-14.8); LYMPHOCYTES # (AUTO) 3.2 K/uL (0.8-4.8); LYMPHOCYTES % (AUTO) 25.3 % (20.0-44.0); MEAN CORPUSCULAR HGB CONC 33 g/dl (31.0-36.0); MEAN CORPUSCULAR VOLUME 90 fL (82-100); MONOCYTES # (AUTO) 0.6 K/uL (0.1-1.30); MONOCYTES % (AUTO) 4.9 % (2.0-12.0); NEUTROPHILS # (AUTO) 8.7 K/uL (1.8-8.9); NEUTROPHILS % (AUTO) 68.2 % (43.0-81.0); PLATELET COUNT (AUTO) 322 K/uL (150-450); RED BLOOD CELL COUNT(AUTO) 5.14 MIL/uL (4.0-5.2); WHITE BLOOD COUNT (AUTO) 12.7 K/uL (4.3-11.0)
[2022-03-26 12:23] LABS: ALBUMIN 3.6 g/dL (3.4-5.0); BILIRUBIN,DIRECT 0.1 mg/dL (0.0-0.2); BILIRUBIN,TOTAL 0.5 mg/dL (0.2-1.0); CALCIUM, SERUM 9.3 mg/dL (8.5-10.1); CREATININE 0.8 mg/dL (0.6-1.3); POTASSIUM 3.9 mmol/L (3.5-5.1); TOTAL PROTEIN, SERUM 7.5 g/dL (6.4-8.2)
--- NOTE | 2022-03-26 12:33 | NUR ---
DR LEE CALLED AND SPOKE WITH DR Bruce LEE
--- NOTE | 2022-03-26 12:35 | NUR ---
RAPID COVID SWAB DONE AND SENT TO LAB
[2022-03-26] MEDS ORDERED: HYDROMORPHONE 1 MG/1 ML DISP.SYRIN IV ONE ×3 (13:00→18:00)
[2022-03-26] MEDS ORDERED: ONDANSETRON HCL/PF - ER 4 MG/2 ML VIAL IV ONE (13:00)
[2022-03-26] MEDS ORDERED: HYDROMORPHONE 1 MG/1 ML DISP.SYRIN ONE ×3 (13:07→18:00)
[2022-03-26] MEDS ORDERED: ONDANSETRON HCL/PF 4 MG/2 ML VIAL ONE ×2 (13:07→16:04)
[2022-03-26 14:08] LABS: BILIRUBIN,URINE NEGATIVE (NEGATIVE); COLOR,URINE YELLOW (YELLOW); LEUKOCYTE ESTERASE ,URINE NEGATIVE (NEGATIVE); NITRITE, URINE NEGATIVE (NEGATIVE); PH,URINE 5.5 (5.0-8.0); PROTEIN,URINE TRACE mg/dl (NEGATIVE); UGLUCOSE NEGATIVE (NEGATIVE); UROBILINOGEN,URINE 0.2 EU/dL (0.2)
[2022-03-26 14:47] LABS: BACTERIA,URINE Rare /HPF (None Seen); SQUAMOUS EPITHELIAL CELL,UR Moderate /HPF (None Seen); WBC,URINE NONE SEEN /HPF (0-3)
--- NOTE | 2022-03-26 14:56 | NUR ---
MAURY [phone] CM FOR IPA
--- NOTE | 2022-03-26 15:39 | NUR ---
CALLED MAURY [phone] CM FOR IPA
--- NOTE | 2022-03-26 15:40 | NUR ---
[facility] AT [facility] SPEAKING WITH DR. ROSENTHAL.
[2022-03-26] MEDS ORDERED: ONDANSETRON HCL/PF 4 MG/2 ML VIAL IV ONE (16:30)
--- NOTE | 2022-03-26 16:30 | NUR ---
DR YESSY LEE AT BEDSIDE
--- NOTE | 2022-03-26 17:23 | NUR ---
BARNEY [phone] CALLED FROM [facility] PT GOING TO ROOM [address] UGALDE PLEASE CALL [phone] FOR REPORT.
--- NOTE | 2022-03-26 17:25 | NUR ---
[facility] CALLED FOR TRANSPORT ETA 75 MINS.
--- NOTE | 2022-03-26 17:34 | NUR ---
REPORT GIVEN TO ZAHRAA RÍOS FOR PRANAY
[2022-03-26 18:17] VITALS: BP 125/82
--- NOTE | 2022-03-26 19:00 | NUR ---
picked up by transport in stable condition
== END 2022-03-26 19:25 | disposition short-term general hospital (02) ==
LOC: ER 10:38
DX: R10.32 Left lower quadrant pain (principal); K43.6 Other and unspecified ventral hernia with obstruction, without gangrene; R11.0 Nausea; Z20.822 Contact with and (suspected) exposure to COVID-19; Z98.890 Other specified postprocedural states; E66.9 Obesity, unspecified; Z68.34 Body mass index [BMI] 34.0-34.9, adult; F17.210 Nicotine dependence, cigarettes, uncomplicated; J45.909 Unspecified asthma, uncomplicated; D72.829 Elevated white blood cell count, unspecified; D25.9 Leiomyoma of uterus, unspecified
CPT/HCPCS: 99291; 74177; 96374; 96375; 96361; 87426; 96376; 85025; 80048; 83605; 83690; 80076; 81001; 36415; 85730; 87081; J2405 ×3; J7030; J7050; Q9967; J1170 ×3; J1885; C9803

== ENCOUNTER 2022-06-13 15:12 | Emergency (ER) | payer BC ==
[~2022-06-13] VITALS: Ht 172.7 cm; Wt 86.2 kg
--- NOTE | 2022-06-13 15:36 | NUR ---
Walked into er c/o chest pain 4/10 epigastric area x 9 days, worse today. pt ambulated to bed with steady gait, connected to monitor. awaiting md orders.
--- NOTE | 2022-06-13 15:40 | NUR ---
ESTABLISHED IV ACCESS 20G RIGHT AC. BLOOD DRAWN AND SENT TO LAB.
--- NOTE | 2022-06-13 15:43 | NUR ---
pt states "my chest pain goes to my ears". pt denies vomiting, diarrhea but admits to nausea.
[2022-06-13 16:14] LABS: CALCIUM, SERUM 9.3 mg/dL (8.5-10.1); CARBON DIOXIDE 22 mmol/L (21-32); CHLORIDE 104 mmol/L (98-107); CREATININE 0.8 mg/dL (0.6-1.3); GLUCOSE 97 mg/dL (74-106); POTASSIUM 4.6 mmol/L (3.5-5.1); SODIUM SERUM 134 mmol/L (136-145); UREA NITROGEN, BLOOD 17 mg/dL (7-18)
[2022-06-13 16:26] LABS: ALANINE AMINOTRANSFERASE 20 U/L (12-78); ALBUMIN 3.1 g/dL (3.4-5.0); ALKALINE PHOSPHATASE 91 U/L (46-116); ASPARTATE AMINOTRANSFERASE 21 U/L (15-37); BILIRUBIN,DIRECT 0.1 mg/dL (0.0-0.2); BILIRUBIN,TOTAL 0.2 mg/dL (0.2-1.0)
[2022-06-13 16:27] LABS: TOTAL PROTEIN, SERUM 7.3 g/dL (6.4-8.2)
[2022-06-13 16:31] LABS: BASOPHILS # (AUTO) 0.1 K/uL (0.0-0.2); BASOPHILS % (AUTO) 0.7 % (0.0-2.0); HEMATOCRIT 43 % (33-45); HEMOGLOBIN 14.2 g/dL (11.5-14.8); LYMPHOCYTES # (AUTO) 3.1 K/uL (0.8-4.8); MEAN CORPUSCULAR HGB CONC 33 g/dl (31.0-36.0); MEAN CORPUSCULAR VOLUME 92 fL (82-100); MONOCYTES # (AUTO) 0.5 K/uL (0.1-1.30); MONOCYTES % (AUTO) 6.1 % (2.0-12.0); NEUTROPHILS # (AUTO) 3.8 K/uL (1.8-8.9); NEUTROPHILS % (AUTO) 50.2 % (43.0-81.0); PLATELET COUNT (AUTO) 278 K/uL (150-450); RED BLOOD CELL COUNT(AUTO) 4.72 MIL/uL (4.0-5.2); WHITE BLOOD COUNT (AUTO) 7.7 K/uL (4.3-11.0)
--- NOTE | 2022-06-13 17:11 | NUR ---
Patient discharged to home in stable condition. Written and verbal after care instructions given. Patient verbalizes understanding of instruction.IV removed. Catheter intact and site benign. Pressure and 4x4 applied to site. No bleeding noted.
[2022-06-13 17:13] VITALS: BP 150/88
== END 2022-06-13 17:15 | disposition home or self-care (01) ==
LOC: ER 15:15
DX: R07.89 Other chest pain (principal); J45.909 Unspecified asthma, uncomplicated; Z79.899 Other long term (current) drug therapy; Z88.5 Allergy status to narcotic agent
CPT/HCPCS: 36415; 71045-TC; 80048-TC; 80076-TC; 83880; 84484-TC; 85025-TC

== ENCOUNTER 2022-08-23 11:05 | Emergency (ER) | payer BC ==
[~2022-08-23] VITALS: Ht 170.2 cm; Wt 86.2 kg
--- NOTE | 2022-08-23 11:10 | NUR ---
BIB RA 39 FROM HOME C/O SHARP CHEST PAIN THAT RADIATES TO HER L ARM [id number]
--- NOTE | 2022-08-23 11:15 | NUR ---
AT BEDSIDE FOR EVAL
[2022-08-23] MEDS ORDERED: ASPIRIN 325 MG TABLET PO ONE (11:30)
[2022-08-23 11:36] LABS: BASOPHILS % (AUTO) 0.4 % (0.0-2.0); EOSINOPHILS % (AUTO) 3.1 % (0.0-6.0); HEMATOCRIT 47 % (33-45); HEMOGLOBIN 15.7 g/dL (11.5-14.8); LYMPHOCYTES # (AUTO) 2.6 K/uL (0.8-4.8); LYMPHOCYTES % (AUTO) 30.6 % (20.0-44.0); MEAN CORPUSCULAR HGB CONC 33 g/dl (31.0-36.0); MEAN CORPUSCULAR VOLUME 91 fL (82-100); MONOCYTES # (AUTO) 0.6 K/uL (0.1-1.30); MONOCYTES % (AUTO) 6.8 % (2.0-12.0); NEUTROPHILS # (AUTO) 5.1 K/uL (1.8-8.9); NEUTROPHILS % (AUTO) 59.1 % (43.0-81.0); PLATELET COUNT (AUTO) 201 K/uL (150-450); RED BLOOD CELL COUNT(AUTO) 5.23 MIL/uL (4.0-5.2); WHITE BLOOD COUNT (AUTO) 8.5 K/uL (4.3-11.0)
--- NOTE | 2022-08-23 11:45 | NUR ---
EKG DONE BY TECH
[2022-08-23 12:28] LABS: CALCIUM, SERUM 9.4 mg/dL (8.5-10.1); CARBON DIOXIDE 24 mmol/L (21-32); CHLORIDE 104 mmol/L (98-107); CREATININE 0.8 mg/dL (0.6-1.3); GLUCOSE 99 mg/dL (74-106); POTASSIUM 4.1 mmol/L (3.5-5.1); SODIUM SERUM 139 mmol/L (136-145); UREA NITROGEN, BLOOD 13 mg/dL (7-18)
[2022-08-23 12:31] LABS: ALANINE AMINOTRANSFERASE 20 U/L (12-78); ALBUMIN 3.5 g/dL (3.4-5.0); ASPARTATE AMINOTRANSFERASE 16 U/L (15-37); BILIRUBIN,TOTAL 0.3 mg/dL (0.2-1.0); TOTAL PROTEIN, SERUM 7.5 g/dL (6.4-8.2)
[2022-08-23 12:47] LABS: ALKALINE PHOSPHATASE 102 U/L (46-116)
[2022-08-23 12:53] VITALS: BP 123/71
--- NOTE | 2022-08-23 12:56 | NUR ---
IV removed. Catheter intact and site benign. Pressure and 4x4 applied to site. No bleeding noted.
== END 2022-08-23 13:06 | disposition home or self-care (01) ==
LOC: ER 11:26
DX: R07.89 Other chest pain (principal); R10.9 Unspecified abdominal pain; J45.909 Unspecified asthma, uncomplicated; Z79.899 Other long term (current) drug therapy; Z88.1 Allergy status to other antibiotic agents
CPT/HCPCS: 99285; 71045; 93005; 85025; 80048; 83690; 80076; 36415; 84484; J7040

== ENCOUNTER 2023-12-24 14:19 | Emergency (ER) | payer BC ==
[~2023-12-24] VITALS: Ht 165.1 cm; Wt 79.4 kg
[2023-12-24 15:27] LABS: BASOPHILS # (AUTO) 0.1 K/uL (0.0-0.2); BASOPHILS % (AUTO) 0.6 % (0.0-2.0); EOSINOPHILS # (AUTO) 0.3 K/uL (0.0-0.7); EOSINOPHILS % (AUTO) 2.7 % (0.0-6.0); HEMATOCRIT 45 % (33-45); HEMOGLOBIN 15.1 g/dL (11.5-14.8); LYMPHOCYTES # (AUTO) 3.3 K/uL (0.8-4.8); LYMPHOCYTES % (AUTO) 33.9 % (20.0-44.0); MEAN CORPUSCULAR HEMOGLOBIN 31 PG (26.0-33.0); MEAN CORPUSCULAR HGB CONC 34 g/dl (31.0-36.0); MEAN CORPUSCULAR VOLUME 93 fL (82-100); MONOCYTES # (AUTO) 0.4 K/uL (0.1-1.30); MONOCYTES % (AUTO) 4.3 % (2.0-12.0); NEUTROPHILS # (AUTO) 5.6 K/uL (1.8-8.9); NEUTROPHILS % (AUTO) 58.5 % (43.0-81.0); PLATELET COUNT (AUTO) 290 K/uL (150-450); RED BLOOD CELL COUNT(AUTO) 4.83 MIL/uL (4.0-5.2); RED CELL DISTRIBUTION WIDTH 14.2 % (11.5-15.0); WHITE BLOOD COUNT (AUTO) 9.7 K/uL (4.3-11.0)
--- NOTE | 2023-12-24 15:40 | NUR ---
RECEIVED PT 53 YRS FEMALE CAME FROM HOME FOR ABDOMINALE PAIN FOR 3 DAYS
--- NOTE | 2023-12-24 15:50 | NUR ---
SEEN BY DR. ROSENTHAL
[2023-12-24 15:56] LABS: CALCIUM, SERUM 9.5 mg/dL (8.5-10.1); CREATININE 0.7 mg/dL (0.6-1.3); POTASSIUM 3.8 mmol/L (3.5-5.1)
[2023-12-24 16:05] LABS: ALBUMIN 3.7 g/dL (3.4-5.0); BILIRUBIN,DIRECT 0.1 mg/dL (0.0-0.2); BILIRUBIN,TOTAL 0.3 mg/dL (0.2-1.0); TOTAL PROTEIN, SERUM 7.4 g/dL (6.4-8.2)
[2023-12-24] MEDS ORDERED: ONDANSETRON HCL/PF 4 MG/2 ML VIAL ONE (16:06)
[2023-12-24] MEDS ORDERED: KETOROLAC TROMETHAMINE 15 MG/ML VIAL ONE ×2 (16:06→16:07)
--- NOTE | 2023-12-24 16:15 | NUR ---
ICE BAG APPLED ON LOWER ABDOMINE
[2023-12-24] MEDS ORDERED: IV NS 0.9% 250 ML IV ONE (16:34)
[2023-12-24] MEDS ORDERED: IOHEXOL-300 100 ML VIAL IV ONE (16:34)
[2023-12-24] MEDS ORDERED: CT SWABBABLE VALVE TRANS SET 1 EA INFUS.SET MC ONE (16:35)
[2023-12-24] MEDS: IV NS 0.9% 1,000 ML BAG IV ONE (16:37)
[2023-12-24] MEDS: KETOROLAC TROMETHAMINE 15 MG/ML VIAL IV ONE (16:39)
[2023-12-24] MEDS: ONDANSETRON HCL/PF 4 MG/2 ML VIAL IVP ONE (16:40)
--- NOTE | 2023-12-24 17:00 | NUR ---
BLOOD DROW BY LAB TECK
--- NOTE | 2023-12-24 17:10 | NUR ---
TO CT SCAN DONE WITH IV CONTRAST
[2023-12-24 17:24] LABS: APPEARANCE,URINE CLEAR (CLEAR); BILIRUBIN,URINE 1+ (NEGATIVE); BLOOD, URINE 2+ Ery/uL (NEGATIVE); COLOR,URINE YELLOW (YELLOW); KETONES,URINE NEGATIVE (NEGATIVE); LEUKOCYTE ESTERASE ,URINE 1+ (NEGATIVE); NITRITE, URINE NEGATIVE (NEGATIVE); PROTEIN,URINE NEGATIVE (NEGATIVE); UGLUCOSE NEGATIVE (NEGATIVE)
[2023-12-24] MEDS ORDERED: AMOX-430 PO (18:32)
--- NOTE | 2023-12-24 18:35 | NUR ---
DR. ROSENTHAL AT BED SIDE SPOOKING WITH PT
--- NOTE | 2023-12-24 18:40 | NUR ---
IV removed. Catheter intact and site benign. Pressure and 4x4 applied to site. No bleeding noted.
--- NOTE | 2023-12-24 18:48 | NUR ---
Patient discharged to home in stable condition. Written and verbal after care instructions given. Patient verbalizes understanding of instruction.
[2023-12-24 19:04] VITALS: BP 108/73; TEMP 98.2; O2SAT 99
[2023-12-24 19:05] LABS: RBC,URINE 21-50 /HPF (0-2)
[2023-12-24 19:06] LABS: ADD URINE CULTURE YES; BACTERIA,URINE 1+ /HPF (None Seen); CALCIUM OXALATE CRYSTALS,UR Few /HPF (None Seen); MUCUS,URINE Few /LPF (None Seen); SQUAMOUS EPITHELIAL CELL,UR 21-50 /HPF (None Seen)
== END 2023-12-24 19:05 | disposition home or self-care (01) ==
LOC: ER 14:44
DX: K57.32 Diverticulitis of large intestine without perforation or abscess without bleeding (principal); R10.32 Left lower quadrant pain; I10 Essential (primary) hypertension; Z98.890 Other specified postprocedural states; Z79.1 Long term (current) use of non-steroidal anti-inflammatories (NSAID); Z79.891 Long term (current) use of opiate analgesic; Z79.899 Other long term (current) drug therapy
CPT/HCPCS: 99285; 74177; 96374; 96361; 96375; 85025; 80048; 87086; 83605; 83690; 80076; 81001; 36415; J2405; J7030; J7050; Q9967; J1885 ×2